=== PATIENT | male | born 1940 | race Caucasian/White ===

== ENCOUNTER 2019-08-12 09:37 | Outpatient (CLI) | payer MEDICARE, SELFPAY ==
[2019-08-12 10:30] VITALS: O2SAT 92
[2019-08-12 10:33] VITALS: O2SAT 86
[2019-08-12 10:35] VITALS: O2SAT 87
[2019-08-12 10:37] VITALS: O2SAT 92
[2019-08-12 10:37] LABS: Base Excess ABG -2.3 mEq/l (+/-2.0); Fractional Inspired Oxygen 21 %; HCO3 ABG 22.3 mEq/l (22.0-26.0); Oxygen Content ABG 11.6 %vol (16.0-22.0); Oxygen Saturation ABG 94.7 % (95.0-100.0); Oxyhemoglobin 90.5 % THb (90.0-100.0); PCO2 ABG 37.4 mmHg (35.0-45.0); PO2 ABG 72.9 mmHg (80.0-100.0); PO2 FiO2 Ratio Arterial Blood 3.47 %; pH ABG 7.394 (7.350-7.450)
[2019-08-12 10:38] LABS: Device ROOM AIR; Modified Allen's Test Pass; Site Drawn LEFT BRACHIAL
[2019-08-12 10:45] VITALS: O2SAT 93
--- NOTE | 2019-08-12 13:59 | HOMEO2EVAL ---
Home Oxygen Evaluation RC: Home Oxygen (O2) Evaluation Start: 08/12/19 13:55 Freq: Status: Active Protocol: RPE Activity Type Activity Date Activity User E-Sign Co-Sign Detail Recorded Client Recorded Date Recorded By Document 08/12/19 10:30 SPRING RT_012 08/12/19 13:58 SPRING Document 08/12/19 10:33 SPRING RT_012 08/12/19 13:58 SPRING Document 08/12/19 10:35 SPRING RT_012 08/12/19 13:58 SPRING Document 08/12/19 10:37 SPRING RT_012 08/12/19 13:58 SPRING Document 08/12/19 10:45 SPRING RT_012 08/12/19 13:58 SPRING 08/12/19 08/12/19 08/12/19 10:30 10:33 10:35 Home O2 Evaluation Test Phase Resting Exercise Exercise Oxygen Delivery Room Air Room Air Nasal Cannula Oxygen Flow Rate (L/min) 1 Pulse Oximetry (90-100 %) 92 86 L 87 L Ambulation Distance (feet) Home Oxygen Evaluation Comments Treatment Charges O2 Evaluation 08/12/19 08/12/19 10:37 10:45 Home O2 Evaluation Test Phase Exercise Resting Oxygen Delivery Nasal Cannula Room Air Oxygen Flow Rate (L/min) 2 Pulse Oximetry (90-100 %) 92 93 Ambulation Distance (feet) 700 Home Oxygen Evaluation Comments PT REQUIRES 2 WITH ACTIVITY Treatment Charges
--- NOTE | 2019-08-12 13:59 | PCRCNOTE ---
PT FAILED SIX MINUTE WALK. HOME O2 EVAL FAXED TO OFFICE. PT REQUESTING INOGEN. NEED 2 WITH ACTIVITY ONLY.
--- NOTE | 2019-08-18 15:48 | P.PCNPFT_ITS ---
PFT Interpretation PFT Interpretation: DOS: 08/12/2019 REQUESTING: Pamela Jin MD REASON FOR TESTING: Shortness of breath PULMONARY FUNCTION TESTS Spirometry: Mild decrease in FEV1 73%, 2.04 L. FVC is normal 102%. FEV1% is low 46% consistent with airflow obstruction. Severe decrease in FEF 25-75%, 19% predicted. No improvement after bronchodilator. Lung volumes: Mild increase in total lung capacity 131% consistent with hyperinflation. Moderate increase in residual volume 156% consistent with air trapping. Airway resistance increased 305%. Diffusion: DLCO is moderately decreased 50% predicted. Flow volume loop: Scooping of the expiratory limb. Inspiratory limb is truncated. IMPRESSION: Mild obstructive ventilatory impairment with airflow obstruction, severe the small airways with mild hyperinflation, moderate air trapping, increased airway resistance and moderate diffusion impairment. No change with b ronchodilator. This pattern can be seen in emphysema. This may be consistent with a COPD/asthma overlap. Clinical correlation is advised. Lack of response to bronchodilators should not preclude use if clinically indicated. Kirsten iJn MD
== END 2019-08-12 09:38 | disposition home or self-care (01) ==
PROVIDERS: PCP Emergency Medicine; Visit Provider Internal Medicine Critical Care Medicine
DX: R06.02 Shortness of breath (principal); J44.9 Chronic obstructive pulmonary disease, unspecified; R94.2 Abnormal results of pulmonary function studies
CPT/HCPCS: 36600; 82805; 94060; 94618; 94726; 94729

== ENCOUNTER 2019-08-25 10:51 | Outpatient (CLI) | payer MEDICARE, SELFPAY ==
[2019-08-25 12:08] LABS: Blood Urea Nitrogen 16 mg/dL (9-20); Calcium 8.6 mg/dL (8.4-10.2); Carbon Dioxide 26 mmol/L (22-30); Chloride 103 mmol/L (98-107); Estimated Glomerular Filt Rate > 60; Glucose 146 mg/dL (75-110); Potassium 4.2 mmol/L (3.4-5.0); Sodium 143 mmol/L (137-145)
== END 2019-08-25 10:52 | disposition home or self-care (01) ==
LOC: ANHSURGERY 10:53
PROVIDERS: Anesthesiology; PCP Emergency Medicine; Visit Provider Otolaryngology
DX: E11.9 Type 2 diabetes mellitus without complications (principal)
CPT/HCPCS: 36415; 80048

== ENCOUNTER 2020-01-05 06:33 | Outpatient (CLI) | payer MEDICARE, SELFPAY ==
--- NOTE | ~2020-01-05 | CT_ITS ---
EXAMINATION: CT lung screening EXAM DATE: 01/05/2020 06:52 INDICATION: Personal history of nicotine dependence. Shortness of breath and cough. TECHNIQUE: Spiral low dose CT of the chest without contrast. Axial, coronal and sagittal images were reviewed. The dose-length product (DLP) for this examination was 227.27 mGy-cm. The exposure was t ailored according to patient size (auto mA exposure control), and iterative reconstruction (ASIR) was used as additional dose reduction technique. There is no prior study for comparison. FINDINGS: Small region of scarring. There are numerous punctate tree-in-bud distribution opacities w ith upper lobe predominance, less than 1 mm in size, probably sequela from prior episode bronchioliti s. No active disease suspected. There is mild emphysema. Tracheobronchial tree is patent. There is no mediastinal, hilar or axillary lymphadenopathy. There are no pleural or pericardial effusions. There is no pneumothorax. Heart normal in size. There is mild to moderate coronary arterial franco cification, arterial sclerosis. The interventricular septum is perceptible, suggesting patient is ane ham. Upper abdomen is unremarkable. There is mild thoracic spondylosis without osteoblastic or os teolytic lesions identified. IMPRESSION: Lung-RADS category 2, benign appearance or behavior (<1% chance of malignancy); recommend continued LDCT screening in 1 year. Reviewed, dictated and finalized at location B.
== END 2020-01-05 06:34 | disposition home or self-care (01) ==
LOC: ANHIMG 06:35
PROVIDERS: PCP Emergency Medicine; Visit Provider Nurse Practitioner Family
DX: Z12.2 Encounter for screening for malignant neoplasm of respiratory organs (principal); Z87.891 Personal history of nicotine dependence
CPT/HCPCS: G0297

== ENCOUNTER 2020-01-21 11:50 | Outpatient (CLI) | payer MEDICARE, SELFPAY ==
[2020-01-21 12:13] LABS: Basophils Absolute Auto 0.1 K/mm3 (0.0-0.1); Basophils Percent Auto 3.4 % (0.2-1.2); Eosinophils Absolute Auto 0.3 K/mm3 (0-0.3); Immature Granulocyte Absolute 0.02 K/mm3 (0.00-0.031); Immature Granulocyte Percent A 0.5 % (0-0.5); Immature Platelet Fraction Pct 7.2 % (0.9-11.2); Immature Reticulocyte Fraction 22.1 % (3.0-15.9); Lymphocytes Absolute Auto 1.01 K/mm3 (0.9-3.2); Lymphocytes Percent Auto 24.5 % (18.3-44.2); Mean Corpuscular HGB Conc 32.7 g/dl (32-36); Mean Corpuscular Hemoglobin 38.6 pg (26-34); Mean Corpuscular Volume 118.1 fl (80-100); Mean Platelet Volume 11.3 fl (7.4-10.4); Monocytes Absolute Auto 0.2 K/mm3 (0.1-0.6); Monocytes Percent Auto 5.3 % (2.6-8.5); Neutrophils Absolute Auto 2.4 K/mm3 (1.3-6.7); Neutrophils Percent Auto 59.3 % (45.5-73.1); Nucleated Red Blood Cells Perc 0.5 % (0.0-0.2); Platelet Count Result 213 k/mm3 (150-375); Red Blood Count 1.66 M/mm3 (4.6-6.20); Red Cell Distribution Width 17.2 % (11.5-14.5); Reticulocyte Hemoglobin Conten 37.1 pg (28.2-35.7); Reticulocyte Percent 2.87 % (0.7-4.3); Reticulocytes Absolute 0.05 B/L (32.2-175.7); White Blood Count 4.1 K/mm3 (4.5-10.0)
[2020-01-21 12:14] LABS: Hematocrit 19.6 % (42.0-52.0); Hemoglobin 6.4 g/dL (14.0-18.0)
[2020-01-21 12:17] LABS: Hypochromasia 2+ (NORMAL); Platelet Estimate Adequate (Adequate)
[2020-01-21 12:18] LABS: Ovalocytes 1+ (NORMAL)
[2020-01-21 12:19] LABS: Poikilocytosis 1+ (NORMAL)
[2020-01-21 15:11] LABS: Iron 214 ug/dL (49-181)
[2020-01-21 15:12] LABS: Alanine Aminotransferase 28 U/L (4-50); Albumin Level 4.3 g/dL (3.5-5.1); Alkaline Phosphatase 59 U/L (38-126); Aspartate Amino Transferase 29 U/L (17-59); Bilirubin,Total 1.5 mg/dL (0.2-1.3); Blood Urea Nitrogen 11 mg/dL (9-20); Calcium 8.5 mg/dL (8.4-10.2); Carbon Dioxide 27 mmol/L (22-30); Chloride 106 mmol/L (98-107); Estimated Glomerular Filt Rate > 60; Glucose 133 mg/dL (75-110); Lactate Dehydrogenase 483 U/L (313-618); Potassium 4.1 mmol/L (3.4-5.0); Sodium 141 mmol/L (137-145)
[2020-01-21 15:20] LABS: Percent Iron Saturation 89 % (20-50)
[2020-01-21 20:06] LABS: Folic Acid 10.7 ng/mL (2.76->20)
[2020-01-25 02:00] LABS: Methylmalonic Acid 128 nmol/L (87-318)
[2020-01-25 06:01] LABS: Albumin 4.1 g/dL (3.8-4.8); Alpha 1 Globulin 0.3 g/dL (0.2-0.3); Alpha 2 Globulin 0.5 g/dL (0.5-0.9); Beta 1 Globulin 0.4 g/dL (0.4-0.6); Gamma Globulin 0.5 g/dL (0.8-1.7); Interpretation Consistent with; Protein, Total 6.2 g/dL (6.1-8.1)
[2020-01-28 02:37] LABS: Soluble Transferrin Receptor 4.05 mg/L (0.76-1.76)
== END 2020-01-21 11:51 | disposition home or self-care (01) ==
PROVIDERS: PCP Emergency Medicine; Visit Provider Internal Medicine Hematology & Oncology
DX: D64.9 Anemia, unspecified (principal)
CPT/HCPCS: 36415; 80053; 82607; 82728; 82746; 83540; 83550; 83615; 83921; 84155; 84165; 84238; 85025; 85046; 85055; 86334

== ENCOUNTER 2020-02-05 07:59 | Day surgery (SDC) | payer MEDICARE, SELFPAY ==
[2020-02-04 12:07] VITALS: BMI 30.4
--- NOTE | ~2020-02-05 | BM_ITS ---
EXAMINATION: CCL bone marrow asp w bx diag DATE: 02/05/2020 10:12 INDICATION: Chronic anemia. TECHNIQUE: A time-out was performed to verify the patient's name, date of , and procedure to b e performed. The procedure including the risks, benefits, and alternatives was discussed with the pat ient. Risks discussed included bleeding and infection. The patient understood the risks and agreed to proceed. The skin overlying the right ilium was prepped and draped in usual sterile fashion. Anest hetic was administered with 1% lidocaine subcutaneously. Moderate sedation was achieved with 1 mg Mary sed IV and 50 mcg fentanyl IV. An 11 gauge needle was inserted into the ilium with fluoroscopic guid ance. Bone marrow was aspirated. An 8 gauge needle was then inserted into the ilium with fluoroscopic guidance. A core bone marrow biopsy was obtained. There were no immediate complications. Fluoroscopy exposure time was 0.0 minutes. The total number of images was 12. FINDINGS: Real-time fluoroscopy demonstrates a marker overlying the right posterior superior iliac sp ine. IMPRESSION: 1. Fluoro-guided bone marrow aspiration. 2. Fluoro-guided bone marrow core biopsy. Reviewed, dictated and finalized at location A.
[2020-02-05 08:32] VITALS: BP 164/69; PULSE 94; RESP 22; TEMP 37.1; O2SAT 94
[2020-02-05 08:37] VITALS: BMI 29.5
[2020-02-05 08:44] LABS: Hemoglobin 9.1 g/dL (14.0-18.0); Mean Corpuscular HGB Conc 32.5 g/dl (32-36); Mean Corpuscular Hemoglobin 35.3 pg (26-34); Mean Corpuscular Volume 108.5 fl (80-100); Mean Platelet Volume 12.1 fl (7.4-10.4); Platelet Count Result 198 k/mm3 (150-375); Red Blood Count 2.58 M/mm3 (4.6-6.20); Red Cell Distribution Width 19.2 % (11.5-14.5); White Blood Count 11.4 K/mm3 (4.5-10.0)
--- NOTE | 2020-02-05 10:03 | P.SEDATION_ITS ---
Moderate Sedation Note-Pt Data Patient Data Diagnosis: Chronic anemia. Present Complaint: Chronic anemia. Procedure to be performed/Plan: Fluoro-guided bone marrow biopsy. Allergies Allergy/AdvReac Type Severity Reaction Status Date / Time Penicillins Allergy Unknown Redness of Verified 12/31/19 14:04 Skin Home Medications Medication Instructions Recorded Confirmed Type aspirin 325 mg tablet 325 mg PO HS 06/24/19 02/05/20 History finasteride 5 mg PO HS 08/21/19 02/05/20 History meloxicam 15 mg tablet 15 mg PO DAILY #90 tablet 09/01/19 02/05/20 Rx losartan 100 mg tablet 100 mg PO DAILY #90 tablet 09/10/19 02/05/20 Rx metformin 500 mg tablet 500 mg PO BID #180 tablet 09/10/19 02/05/20 Rx budesonide-formoterol HFA 160 2 puff INHALATION Q12H 90 Days 12/31/19 02/05/20 Rx mcg-4.5 mcg/actuation aerosol #30.6 gm inhaler pantoprazole 40 mg PO DAILY 02/04/20 02/05/20 History tamsulosin 0.4 mg PO DAILY 02/04/20 02/05/20 History Sedation/Anesthesia: No previous sedation/anesthesia problems (including family history). [facility] Family History Family History Mother Patient's mother is , Onset Age: 85 Father Patient's father is Social History Social History Smoking packs per day: 1 Smoking cigarettes per day: 20.0 Years smoked: 60 Smoking pack-years: 60.00 Smoking status: Former smoker Tobacco type: cigarettes Second hand tobacco smoke exposure: No Smoking end date: 07/09/18 Alcohol intake: former Substance use: never Living arrangements: with family Gender identity (if verbalized by the patient): Male Spiritual care concerns: No Mod Sed Physical Exam Physical Exam Pre Procedural Exam: Normal: Lungs, Heart Rate, Heart Rhythm and Abdomen and Variation: Appearance (Obese.) and Airway (Mallampati class II.) Hours since solid foods: 12 Hours since liquid intake: 12 Internal Medicine - PN: Obj Da Vital Signs Vital Signs: Vital Signs - 24 hr 02/05/20 08:32 Temperature 37.1 C Pulse Rate 94 Respiratory Rate 22 H Blood Pressure 164/69 H Pulse Oximetry 94 Labs CBC & Chem 7: 02/05/20 08:28 Labs: Laboratory Results - last 24 hr 02/05/20 08:28 WBC 11.4 H RBC 2.58 L Hgb 9.1 L Hct 28.0 L MCV 108.5 H MCH 35.3 H MCHC 32.5 RDW 19.2 H Plt Count 198 MPV 12.1 H ASA Classification/Sedation ASA Classification/Sedation ASA Class: II Risks: Risks, benefits and alternatives explained and patient/family accepted plan for sedation. Patient re-evaluated immediately prior to sedation.
[2020-02-05 10:22] VITALS: BP 175/72; PULSE 98; RESP 25; O2SAT 93
[2020-02-05 10:30] VITALS: BP 177/78; PULSE 102; RESP 27; O2SAT 90
[2020-02-05 10:45] VITALS: BP 165/73; PULSE 100; RESP 16; O2SAT 93
[2020-02-05 11:00] VITALS: BP 149/73; PULSE 101; RESP 13; O2SAT 93
[2020-02-05 11:15] VITALS: BP 166/80; PULSE 100; RESP 16; O2SAT 94
--- NOTE | 2020-02-05 11:36 | SUR.PHASEII ---
Pt. provided with discharge education following bone marrow biopsy. Pt. instructed to resume aspirin therapy tomorrow per MD Rand. Pt. verbalizes understanding.
== END 2020-02-05 11:37 | disposition home or self-care (01) ==
PROVIDERS: PCP Emergency Medicine; Visit Provider Radiology Diagnostic Radiology
DX: D64.9 Anemia, unspecified (principal)
CPT/HCPCS: 36415; 38222; 85027; 88184; 88185; 88305; 88311; 88313; 88342; 88360; 88364; 88365; J2250; J3010; J7040

== ENCOUNTER 2020-03-09 08:47 | Outpatient (RCR) | payer MEDICARE, MEDICAID, SELFPAY ==
[2020-01-29 09:46] LABS: Hematocrit 20.7 % (42.0-52.0); Hemoglobin 6.8 g/dL (14.0-18.0)
[2020-01-30] VITALS (9 sets, daily range): BP systolic 150–174; BP diastolic 56–78; PULSE 74–90; RESP 14–24; TEMP 36.9–37.4; O2SAT 96–98
[2020-01-30] MEDS: diphenhydrAMINE HCl CAP 25 MG CAPSULE PO (10:00)
[2020-01-30] MEDS: ACETAMINOPHEN 325 MG TABLET 650 MG PO (10:00)
[2020-01-30] MEDS: FUROSEMIDE INJ 40 MG/4 ML VIAL 20 MG IV PUSH (11:07)
[2020-03-09 10:16] VITALS: BP 176/69; PULSE 76; RESP 14; TEMP 37.4; O2SAT 97
[2020-03-09 10:31] VITALS: BP 182/89; PULSE 78; RESP 14; TEMP 37.2; O2SAT 97
[2020-03-09 11:32] VITALS: BP 159/85; PULSE 76; RESP 14; TEMP 37.1; O2SAT 100
[2020-03-09 12:30] VITALS: BP 171/85; PULSE 80; RESP 14; TEMP 37.3; O2SAT 98
== END 2020-04-28 23:59 | disposition home or self-care (01) ==
LOC: ANHCPCTRAN 08:47
PROVIDERS: PCP Emergency Medicine; Referring Provider Nurse Practitioner Adult Health; Visit Provider Internal Medicine Hematology & Oncology
DX: D64.9 Anemia, unspecified (principal)
CPT/HCPCS: 36415; 36430; 85014; 85018; 86850; 86900; 86901; 86920; 86923; 96374; A9270; J1940; J7050; P9016

== ENCOUNTER 2020-05-17 07:43 | Outpatient (CLI) | payer MEDICARE, MEDICAID, SELFPAY | END 2020-05-17 07:44 | disposition home or self-care (01) | LOC: ANHAUDIO 07:44 | PROVIDERS: PCP Emergency Medicine; Visit Provider Emergency Medicine | DX: H90.3 Sensorineural hearing loss, bilateral (principal) | CPT/HCPCS: 92557; 92567 ==

== ENCOUNTER 2020-06-24 13:00 | Outpatient (RCR) | payer MEDICAID, SELFPAY | END 2020-06-24 23:59 | disposition home or self-care (01) | LOC: ANHAUDIO 13:00 | PROVIDERS: PCP Emergency Medicine; Visit Provider Emergency Medicine | DX: Z46.1 Encounter for fitting and adjustment of hearing aid (principal) | CPT/HCPCS: 99199; V5160; V5261 ==

== ENCOUNTER 2020-06-30 10:50 | Outpatient (CLI) | payer MEDICARE, MEDICAID, SELFPAY ==
[2020-06-30 11:38] LABS: Cholesterol 118 mg/dL (0-200); HDL Direct 53 mg/dL; Triglycerides 64 mg/dL (<150)
[2020-06-30 11:49] LABS: LDL Cholesterol Direct 58 mg/dL
== END 2020-06-30 10:51 | disposition home or self-care (01) ==
PROVIDERS: PCP Internal Medicine; Visit Provider Internal Medicine
DX: E11.9 Type 2 diabetes mellitus without complications (principal); Z13.220 Encounter for screening for lipoid disorders
CPT/HCPCS: 36415; 80061; 83036

== ENCOUNTER 2021-01-05 09:47 | Outpatient (CLI) | payer MEDICARE, MEDICAID, SELFPAY ==
[2021-01-05 10:52] LABS: Hemoglobin A1C 7.2 % (<5.7)
[2021-01-05 16:17] LABS: Creatinine Urine 133.1 mg/dL
[2021-01-05 16:20] LABS: MALB Creatinine Ratio 16.1 mg/g (0-30); Microalbumin Urine Random 21.4 mg/L (0-16.7)
== END 2021-01-05 09:48 | disposition home or self-care (01) ==
PROVIDERS: PCP Internal Medicine; Visit Provider Internal Medicine Hematology & Oncology
DX: E11.9 Type 2 diabetes mellitus without complications (principal)
CPT/HCPCS: 36415; 82043; 83036

== ENCOUNTER 2021-02-14 08:53 | Outpatient (CLI) | payer MEDICARE, MEDICAID, SELFPAY ==
--- NOTE | ~2021-02-14 | CT_ITS ---
EXAMINATION:CT lung screening DATE: 02/14/2021 09:32 INDICATION: Personal history of nicotine dependence. Smoker who quit 2 years ago with 60 pack year hi story. TECHNIQUE: Computed tomography (CT) of the chest was performed without intravenous contrast. Automate d exposure control and iterative reconstruction technique were employed. The dose-length product (DLP ) was 281.90 mGy-cm. COMPARISON: Chest CT 01/05/2020 FINDINGS: There is mild emphysema. There is a stable 3 mm nodule in left upper lobe. There is a stabl e 2 mm nodule at left major fissure. There are two stable 3 mm nodules in right middle lobe. No pleur al effusion. The heart size is normal. There are coronary artery calcifications. No pericardial effus ion. There are changes of cholecystectomy. There are cysts in right kidney measuring up to 4.2 cm. Th ere is mild bilateral gynecomastia. There is moderate thoracic spondylosis and severe lumbar spondylo sis. IMPRESSION: 1. Lung-RADS category 2: Benign appearance or behavior. Continue annual screening with noncontrast lo w-dose chest CT in 12 months. Reviewed, dictated and finalized at location A. IMPRESSION: 1. Lung-RADS category 2: Benign appearance or behavior. Continue annual screeni ng with noncontrast low-dose chest CT in 12 months.
== END 2021-02-14 08:54 | disposition home or self-care (01) ==
LOC: ANHIMG 08:55
PROVIDERS: PCP Internal Medicine; Visit Provider Nurse Practitioner Family
DX: Z12.2 Encounter for screening for malignant neoplasm of respiratory organs (principal); Z87.891 Personal history of nicotine dependence
CPT/HCPCS: 71271

== ENCOUNTER 2021-05-12 07:30 | Outpatient (RCR) | payer MEDICARE, MEDICAID, SELFPAY ==
[2021-05-12] VITALS (10 sets, daily range): BP systolic 128–185; BP diastolic 64–90; PULSE 67–78; RESP 16–18; TEMP 36–36.5; O2SAT 94–98
[2021-05-12] MEDS: ACETAMINOPHEN 325 MG TABLET 650 MG PO (08:03)
[2021-05-12] MEDS: diphenhydrAMINE HCl CAP 25 MG CAPSULE PO (08:04)
[2021-05-12] MEDS: SODIUM CHLORIDE 0.9% IV 250 ML 30 ML IV CONT (08:35)
[2021-05-12] MEDS: FUROSEMIDE INJ 40 MG/4 ML VIAL 20 MG IV PUSH (11:05)
== END 2021-08-10 23:59 | disposition home or self-care (01) ==
LOC: ANHCPCTRAN 07:30
PROVIDERS: PCP Internal Medicine; Visit Provider Internal Medicine Hematology & Oncology
DX: D64.9 Anemia, unspecified (principal); E83.42 Hypomagnesemia
CPT/HCPCS: 36415; 36430; 86850; 86900; 86901; 86920; 96374; A9270; J1940; J7050; P9016

== ENCOUNTER 2021-07-07 14:51 | Inpatient (IN) | payer MEDICARE, MEDICAID, SELFPAY ==
[2021-07-07] VITALS (10 sets, daily range): BP systolic 99–125; BP diastolic 47–55; PULSE 95–113; RESP 22–32; TEMP 36.5–37.6; O2SAT 92–100; BMI 24.6
--- NOTE | ~2021-07-07 | XR_ITS ---
EXAMINATION: XR thoracic spine 3V DATE: 07/12/2021 10:24 INDICATION: Back pain. TECHNIQUE: 3 views of thoracic spine were obtained. COMPARISON: Chest CT 07/07/2021 FINDINGS: There is 8 degrees dextrocurvature of thoracic spine. Vertebral body heights are normal. Th ere is moderately decreased disc height at T6-T7 and T7-T8. There is mildly decreased disc height at multiple levels in mid thoracic spine. There are endplate osteophytes at most levels. There is multil evel severe facet joint osteoarthritis. IMPRESSION: 1. Moderate thoracic spondylosis. Reviewed, dictated and finalized at location A. EXAMINING TECHNICIAN
--- NOTE | ~2021-07-07 | CT_ITS ---
EXAMINATION: CTA chest PE protocol DATE: 07/07/2021 17:46 INDICATION: Shortness of breath, COVID 19 positive TECHNIQUE: Computed tomography angiography (CTA) of the chest was performed with 100 mL Omnipaque-350 intravenous contrast timed to evaluate the pulmonary arteries. Coronal maximum intensity projection 3D-reconstructions were created by the technologist. The dose-length product (DLP) was 730.02 mGy-cm. Automated exposure control and iterative reconstruction technique were employed. COMPARISON: None. FINDINGS: The pulmonary arteries are well-opacified. There are acute emboli in all lobes of the lungs . There is a small right pleural effusion. There are patchy groundglass opacities throughout the lung s. There is no pneumothorax. There is mild mediastinal and right hilar lymphadenopathy, likely reacti ve. The heart size is normal. Calcified coronary artery atherosclerosis is noted. The gallbladder is surgically absent. There is a partially imaged 2.8 cm cyst of the right kidney upper pole. There is m oderate thoracic spondylosis. IMPRESSION: 1. Acute pulmonary emboli involving all lobes of the lungs. 2. Patchy groundglass opacities throughout the lungs in a pattern consistent with COVID 19 pneumonia. These findings were discussed with Dr. Shawn MD in the Emergency Department at 1800 hours on 06/10. Reviewed, dictated and finalized at location F. WINDING MACHINE OPERATOR IMPRESSION: 1. Acute pulmonary emboli involving all lobes of the lungs. 2. Patchy groundglass opacities throughout the lungs in a pattern consistent wi th COVID 19 pneumonia. These findings were discussed with Dr. Shawn MD in the Emergency Department at 1800 hours on 07/07/2021.
--- NOTE | ~2021-07-07 | XR_ITS ---
EXAMINATION: XR chest 1V portable DATE: 07/07/2021 15:31 INDICATION: Shortness of breath. COVID-19 pneumonia. TECHNIQUE: A single frontal view of the chest was obtained. COMPARISON: Chest 2 views 09/11/2016, chest CT 02/14/2021 FINDINGS: There are patchy airspace opacities in all lung zones bilaterally. No pleural effusion or p neumothorax. The heart size is normal. IMPRESSION: 1. Diffuse lung disease, consistent with COVID-19 pneumonia. Reviewed, dictated and finalized at location B. MAKING PLANT OPERATOR
--- NOTE | ~2021-07-07 | XR_ITS ---
EXAMINATION: XR chest 1V portable DATE: 07/09/2021 07:10 INDICATION: Respiratory failure. TECHNIQUE: A single frontal view of the chest was obtained on 2 radiographs. COMPARISON: Chest single view 07/07/2021, chest CT 07/07/2021 FINDINGS: There are patchy airspace opacities in all lung zones bilaterally with relative sparing of left lung apex. There is a small right pleural effusion. No pneumothorax. The heart size is normal. IMPRESSION: 1. Stable diffuse lung disease, consistent with COVID-19 pneumonia without or with infarcts. 2. Stable small right pleural effusion. Reviewed, dictated and finalized at location A. R OPERATOR IMPRESSION: 1. Stable diffuse lung disease, consistent with COVID-19 pneumonia without or w ith infarcts. 2. Stable small right pleural effusion.
--- NOTE | ~2021-07-07 | US_ITS ---
EXAMINATION: US renal BI EXAM DATE: 07/10/2021 10:20 INDICATION: Renal failure. TECHNIQUE: Multiple grayscale and Doppler images of the kidneys were obtained (by a technologist who performed the scan) and subsequently reviewed. Comparison is made to prior examination from 09/21/2011 . FINDINGS: Right kidney: There is normal contour and echogenicity. It measures 11.7 x 5.5 x 6.5 centimeters. Th ere is an anechoic cystic region likely cyst measuring about 5 cm. There is no hydronephrosis. Left kidney: There is normal contour and echogenicity. It measures 11.4 x 5.1 x 6.1 centimeters. The re is an anechoic region consistent with cysts measuring 3 cm. There is no hydronephrosis. Bladder unremarkable. IMPRESSION: 1. No hydronephrosis. Reviewed, dictated and finalized at location A. GLUER IMPRESSION: 1. No hydronephrosis.
--- NOTE | ~2021-07-07 | US_ITS ---
EXAMINATION: US venous doppler [facility] EXAM DATE: 07/10/2021 10:16 INDICATION: Pulmonary emboli. TECHNIQUE: Multiple grayscale, color flow and Doppler images of the lower extremity deep venous syste ms bilaterally were obtained and reviewed. There is no prior study for comparison. FINDINGS: Right side: The right common femoral, femoral and profunda veins demonstrate normal color flow, respi ratory variation, augmentation and compressibility. Compressibility, color flow confirmed within the right popliteal, posterior tibial, peroneal, and greater saphenous veins. Left side: The left common femoral, femoral and profunda veins demonstrate normal color flow, respira tory variation, augmentation and compressibility. Compressibility, color flow confirmed within the l eft popliteal, posterior tibial, peroneal, and greater saphenous veins. IMPRESSION: No lower extremity deep venous thrombosis bilaterally. Reviewed, dictated and finalized at location A. EL PILE DRIVER OPERATOR
--- NOTE | 2021-07-07 14:55 | PC.NURSE ---
Patient reports he does not wish to have chest compressions or to be intubated in the case it would be needed.
--- NOTE | 2021-07-07 15:00 | ECG_ITS ---
Measurements Intervals [place] Rate: 105 P: -60 RI: 134 QRS: 87 QRSD: 130 T: -61 QT: 357 QTc: 472 Interpretive Statements SINUS OR ECTOPIC ATRIAL TACHYCARDIA RIGHT BUNDLE BRANCH BLOCK MINIMAL Q WAVES- ANTEROLAT/HIGH LAT LEADS BORDERLINE ST-T WAVE ABNORMALITY- INFERIOR LEADS BASELINE ARTIFACT- II, III, AVR, AVF, V1-V6 ABNORMAL ECG Electronically Signed On 07-07-2021 15:42:23 BANK CASHIER by Tone Walker D.O.
[2021-07-07 15:32] LABS: Basophils Absolute Auto 0.1 K/mm3 (0.0-0.1); Basophils Percent Auto 0.3 % (0.2-1.2); Hematocrit 21.3 % (42.0-52.0); Immature Granulocyte Percent A 1.1 % (0-0.5); Lymphocytes Percent Auto 2.6 % (18.3-44.2); Mean Corpuscular HGB Conc 32.4 g/dl (32-36); Mean Corpuscular Hemoglobin 34.7 pg (26-34); Mean Platelet Volume 12.6 fl (7.4-10.4); Monocytes Absolute Auto 0.7 K/mm3 (0.1-0.6); Monocytes Percent Auto 2.6 % (2.6-8.5); Neutrophils Absolute Auto 24.8 K/mm3 (1.3-6.7); Neutrophils Percent Auto 93.4 % (45.5-73.1); Nucleated Red Blood Cells Absolute Auto 0.3 K/mm3 (0.0-0.012); Platelet Count Result 251 k/mm3 (150-375); Red Blood Count 1.99 M/mm3 (4.6-6.20); Red Cell Distribution Width 23.9 % (11.5-14.5); White Blood Count 26.6 K/mm3 (4.5-10.0)
[2021-07-07 15:56] LABS: Alanine Aminotransferase 21 U/L (4-50); Albumin Level 3.4 g/dL (3.5-5.1); Alkaline Phosphatase 104 U/L (38-126); Anion Gap 12 mmol/L (8-16); Aspartate Amino Transferase 28 U/L (17-59); Bilirubin,Total 2.1 mg/dL (0.2-1.3); Blood Urea Nitrogen 32 mg/dL (9-20); Calcium 8.5 mg/dL (8.4-10.2); Carbon Dioxide 19 mmol/L (22-30); Chloride 104 mmol/L (98-107); Estimated Glomerular Filt Rate 37; Glucose 280 mg/dL (65-110); Potassium 5.1 mmol/L (3.4-5.0); Sodium 135 mmol/L (137-145)
[2021-07-07 16:49] LABS: Hemoglobin 6.9 g/dL (14.0-18.0)
[2021-07-07 16:53] LABS: Smudge Cells FEW
[2021-07-07 16:55] LABS: Platelet Estimate Adequate (Adequate)
[2021-07-07 16:56] LABS: Anisocytosis 1+ (NORMAL)
[2021-07-07 16:57] LABS: Poikilocytosis 1+ (NORMAL)
[2021-07-07 16:59] LABS: Hypochromasia 2+ (NORMAL)
[2021-07-07 17:04] LABS: Alveolar/Arterial O2 Gradient 609.9 mmHg; Base Excess ABG -3.6 mEq/l (+/-2.0); Fractional Inspired Oxygen 100 %; HCO3 ABG 19.8 mEq/l (22.0-26.0); Oxygen Content ABG 9.4 %vol (16.0-22.0); Oxygen Saturation ABG 95.8 % (95.0-100.0); Oxyhemoglobin 91.9 % THb (90.0-100.0); PCO2 ABG 28.9 mmHg (35.0-45.0); PO2 ABG 74.2 mmHg (80.0-100.0); PO2 FiO2 Ratio Arterial Blood 0.74 %; pH ABG 7.454 (7.350-7.450)
[2021-07-07 17:06] LABS: Device NON-REBREATHER MASK; Modified Allen's Test Pass; Site Drawn RIGHT RADIAL; Total Hemoglobin 7.2 g/dL (12.0-18.0)
[2021-07-07 17:40] LABS: INR 1.6; Prothrombin Time 18.3 Seconds (11.1-14.7)
[2021-07-07 17:42] LABS: D Dimer 1.76 ug/mL (<0.48)
--- NOTE | 2021-07-07 18:25 | ED.SOB ---
HPI - SOB/Dyspnea General Chief Complaint: Shortness of Breath/Dyspnea Stated Complaint: sob, Time Seen by Provider: 07/07/21 17:06 Source: patient Mode of arrival: EMS Limitations: no limitations History of Present Illness HPI Narrative: 81-year-old with a history of COPD, myelodysplastic syndrome here with complaints of severe shortness of breath for past 1 day. Patient states that he was diagnosed with Covid approximately a week ago. He denies any nausea, vomiting or abdominal pain. He denies any chest pain. MD elicited complaint: shortness of breath and cough Pertinent past history: COPD Context: recent illness (Diagnosed with Covid 1 week ago) Exacerbating factors: nothing Relieving factors: oxygen Known history of: COPD Associated symptoms: denies other symptoms Treatment prior to arrival: oxygen Related Data Home Medications Medication Instructions Recorded Confirmed aspirin 325 mg tablet 325 mg PO HS 06/24/19 06/22/21 magnesium oxide 500 mg PO DAILY 03/26/20 06/22/21 Trelegy Ellipta 1 puff DAILY 11/24/20 06/22/21 tramadol 50 mg BYMOUTH DAILY 03/09/21 06/22/21 tramadol 50 mg PO Q6H PRN 03/30/21 06/22/21 Allergies Allergy/AdvReac Type Severity Reaction Status Date / Time Penicillins Allergy Severe Redness of Verified 06/22/21 12:42 Skin Review of Systems Review of Systems: All systems reviewed & are unremarkable except as noted in HPI and below Constitutional: Constitutional: Reports no additional constitutional complaints Eyes: Eyes: Reports no additional eye complaints ENT: Reports system reviewed and no additional complaints, except as documented Cardiovascular: Cardiovascular: Reports no additional cardiovascular complaints Respiratory: Respiratory: Reports as per HPI Gastrointestinal: Gastrointestinal: Reports no additional gastrointestinal complaints Musculoskeletal: Musculoskeletal: Reports no additional musculoskeletal complaints Neurologic: Reports system reviewed and no additional complaints, except as documented Endocrine: Endocrine: Reports no additional endocrine complaints [facility] Family History Family History Mother Patient's mother is , Onset Age: 85 Father Patient's father is Social History Social History Smoking packs per day: 1 Smoking cigarettes per day: 20.0 Years smoked: 60 Smoking pack-years: 60.00 Smoking status: Former smoker Tobacco type: cigarettes Second hand tobacco smoke exposure: No Smoking end date: 07/09/18 Alcohol intake: former Substance use: never Gender identity (if verbalized by the patient): Male Spiritual care concerns: No Exam Narrative: GENERAL: Well-appearing, well-nourished, and in mild distress upon arrival HEAD: Normocephalic, atraumatic. EYES: PERRLA and EOMI. NECK: Supple. CHEST: Decreased air entry mild wheeze bilaterally. HEART: Regular rate and rhythm. No murmur heard. Normal peripheral pulses. ABDOMEN: Soft, nontender, nondistended, normal active bowel sounds. EXTREMITIES: Normal range of motion. No edema. SKIN: Warm, dry, no rash. NEURO: No focal deficits. Alert and oriented x3. PSYCH: Normal mood and affect. Course Course Emergency Course: Patient was hypoxic upon arrival, she was unable to tolerate nonrebreather we will put him on 15 L high flow. He is feeling much better. Informed him about his lab work, CT findings. I discussed with Dr. Dubon recommended Remdesivir and Decadron. As the patient has elevated white count I will cover him with antibiotic as well Levaquin and Rocephin as recommended. CT also shows PE will give him Lovenox 80 mg sub Q daily Vital Signs Vital signs: Vital Signs Temperature 37.6 C 07/07/21 14:56 Pulse Rate 113 H 07/07/21 14:56 Respiratory Rate 32 H 07/07/21 14:56 Blood Pressure 120/54 L 07/07/21 14:56 Pulse
[2021-07-07] MEDS: ENOXAPARIN 80 MG/0.8 ML SYRINGE SUB-Q (18:55)
[2021-07-07 19:07] LABS: EDCOVIDSCREEN Negative (Negative)
[2021-07-07 19:08] LABS: Lactic Acid Reflex 1.7 mmol/L (0.7-2.1)
[2021-07-07] MEDS: REMDESIVIR 200 MG/NS 250 ML 200 MG/250 ML BAG 250 MG IVPB (21:38)
[2021-07-07] MEDS: ACETAMINOPHEN 325 MG TABLET 650 MG PO (21:57)
--- NOTE | 2021-07-07 22:23 | PC.NURSE ---
attempted to call report to imu nurse will call back
[2021-07-07 22:46] LABS: Alanine Aminotransferase 18 U/L (4-50); Estimated CRCL calculation 25 ml/min; Estimated Glomerular Filt Rate 26
[2021-07-07 22:47] LABS: INR 1.9
--- NOTE | 2021-07-07 22:56 | ADMGEN ---
This patient, oJse R Perry, was admitted to IMU Room [id number]. Patient/family oriented to hospital policies and general routines including ID bracelet, bed and alarms, visiting hours, pain management, procedures, bathroom and other care routines, personal items, smoking policy, room service/diet, and visiting hours. Information on how to activate the Rapid Response Team has been discussed. Patient/Family are encouraged to report perceived risks to care and to ask questions if they do not understand what they are told or what they should do.
--- NOTE | 2021-07-07 23:34 | PCRCNOTE ---
past scheduled time for administration- see next scheduled administration
[2021-07-08] VITALS (29 sets, daily range): BP systolic 97–145; BP diastolic 39–64; PULSE 89–122; RESP 18–28; TEMP 35.9–36.8; O2SAT 93–100
[2021-07-08] MEDS: SODIUM CHLORIDE 0.9% IV 1,000 ML 75 ML IV CONT ×2 (00:19→04:44)
[2021-07-08 00:35] LABS: Glucose Point of Care 200 mg/dl (65-105)
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
[2021-07-08 02:26] LABS: Basophils Absolute Auto 0.1 K/mm3 (0.0-0.1); Basophils Percent Auto 0.6 % (0.2-1.2); Hematocrit 22.3 % (42.0-52.0); Lymphocytes Absolute Auto 0.67 K/mm3 (0.9-3.2); Lymphocytes Percent Auto 3.3 % (18.3-44.2); Mean Corpuscular HGB Conc 29.1 g/dl (32-36); Mean Corpuscular Hemoglobin 33.5 pg (26-34); Mean Corpuscular Volume 114.9 fl (80-100); Mean Platelet Volume 11.4 fl (7.4-10.4); Monocytes Absolute Auto 0.6 K/mm3 (0.1-0.6); Monocytes Percent Auto 2.7 % (2.6-8.5); Neutrophils Absolute Auto 18.5 K/mm3 (1.3-6.7); Neutrophils Percent Auto 92.4 % (45.5-73.1); Nucleated Red Blood Cells Absolute Auto 0.2 K/mm3 (0.0-0.012); Nucleated Red Blood Cells Perc 0.8 % (0.0-0.2); Platelet Count Result 185 k/mm3 (150-375); Red Blood Count 1.94 M/mm3 (4.6-6.20); Red Cell Distribution Width 24.4 % (11.5-14.5)
[2021-07-08] MEDS: IPRATROPIUM BR 0.02% INH SOLN 0.5 MG/2.5 ML VIAL INHALATION ×4 (02:33→22:16)
[2021-07-08] MEDS: ALBUTEROL SULFATE NEB 2.5 MG/0.5 ML INH 5 MG INHALATION ×4 (02:33→22:16)
[2021-07-08 02:35] LABS: Alanine Aminotransferase 16 U/L (4-50); Aspartate Amino Transferase 19 U/L (17-59); Estimated CRCL calculation 24 ml/min; Estimated Glomerular Filt Rate 25
[2021-07-08 02:50] LABS: Anion Gap 14 mmol/L (8-16); Blood Urea Nitrogen 43 mg/dL (9-20); Calcium 8.1 mg/dL (8.4-10.2); Carbon Dioxide 16 mmol/L (22-30); Chloride 103 mmol/L (98-107); Glucose 223 mg/dL (65-110); Sodium 133 mmol/L (137-145)
[2021-07-08 03:06] LABS: Hemoglobin 6.5 g/dL (14.0-18.0)
[2021-07-08 03:07] LABS: Platelet Estimate Adequate (Adequate)
[2021-07-08 03:08] LABS: Anisocytosis 1+ (NORMAL)
[2021-07-08 03:09] LABS: Poikilocytosis 1+ (NORMAL)
[2021-07-08] MEDS: SODIUM CHLORIDE 0.9% IV 1,000 ML 999 ML IV CONT (03:21)
[2021-07-08 06:48] LABS: INR 1.9; Prothrombin Time 21.5 Seconds (11.1-14.7)
[2021-07-08] MEDS: MAGNESIUM OXIDE 400 MG TABLET PO (08:57)
[2021-07-08] MEDS: BARICITINIB 1 MG TABLET PO (08:57)
[2021-07-08] MEDS: TAMSULOSIN HCL 0.4 MG CAPSULE PO (08:58)
[2021-07-08] MEDS: PANTOPRAZOLE 40 MG TABLET PO (08:58)
[2021-07-08 09:07] LABS: Glucose Point of Care 215 mg/dl (65-105)
[2021-07-08] MEDS: INSULIN ASPART (*BKC) 100 UNITS/ML SUB-Q ×3 (09:18→17:35)
[2021-07-08] MEDS: TUBING, BLOOD PLUM PUMP TUBING 1 EACH XX ×2 (09:18)
[2021-07-08 12:30] LABS: Glucose Point of Care 310 mg/dl (65-105)
[2021-07-08 14:05] LABS: SARS-CoV-2 RNA PCR Positive
--- NOTE | 2021-07-08 15:12 | PM.IMPN ---
Progress Note: A&P Assessment and Plan (1) Acute respiratory failure with hypoxia: Code(s): J96.01 - Acute respiratory failure with hypoxia Status: Acute (2) Pneumonia due to 2019 novel coronavirus: Code(s): U07.1 - COVID-19; J12.82 - Pneumonia due to coronavirus disease 2019 Status: Acute (3) Pulmonary embolism: Qualifiers: Acute cor pulmonale presence: without acute cor pulmonale Chronicity: acute Pulmonary embolism type: unspecified Qualified Code(s): I26.99 - Other pulmonary embolism without acute cor pulmonale Code(s): I26.99 - Other pulmonary embolism without acute cor pulmonale Status: Acute (4) Acute renal failure: Qualifiers: Acute renal failure type: unspecified Qualified Code(s): N17.9 - Acute kidney failure, unspecified Code(s): N17.9 - Acute kidney failure, unspecified Status: Acute (5) Type 2 diabetes mellitus with hyperglycemia: Qualifiers: Diabetes mellitus half-way insulin use: without half-way use Qualified Code(s): E11.65 - Type 2 diabetes mellitus with hyperglycemia Code(s): E11.65 - Type 2 diabetes mellitus with hyperglycemia Status: Acute Additional Plan The patient tested positive for COVID as outpatient. The patient has acute hypoxic respiratory failure due to combination of COVID pneumonia and bilateral pulmonary embolism. Patient was started on Decadron, Remdesivir and Baricitinib. Confirmatory COVID test positive here as well. Remdesivir held due to the CHI. Was up to 15L but back down to 10L now. He has been started on therapeutic Lovenox 80 mg q.day adjusted due to his renal function for the PEs. Order LE doppler Unfortunately patient also has significant anemia likely due to his myelodysplastic syndrome with Hgb 6.5 - he received 2U PRBC. No Lasix after the transfusion since he has the CHI. He had some mildly low blood pressures so could be a component of hypovolemia hypotension. He did receive 1 L normal saline bolus. He was on IV fluids 125 mL but this was stopped since he has COVID. The patient does have diabetes mellitus with hyperglycemia. Will hold the patient's metformin due to his renal insufficiency. Continue high-dose sliding scale with Accu-Cheks a.c. HS. Subjective Date/time seen: 07/08/21 15:12 Interval history: 81yo male with hx of COPD/interstitial lung disease, myelodysplastic syndrome, CAD, DM and BPH who presented to the ER via EMS from home due to shortness of breath. Assuming care. Chart reviewed. Patient denies any cough or chest pain. He does feel short of breath. Complains of right-sided mid back pain that is pleuritic and positional. No nausea, vomiting or diarrhea. He has voided x3 today Exam Narrative: AF 97.8 125/56 941 8 93% HFNC 10L Gen - tachypneic with talking. Chest - R>L inspiraotry crackles CV - RRR S1/S2. Tele showing no significant dysrhythmias Abd - Soft, NT/ND, Positive BS Ext - No pedal edema Psych - Nml mood and affect Skin - cool and dry Objective Data Vital Signs Vital Signs: Vital Signs - 24 hr 07/07/21 16:49 07/07/21 17:24 07/07/21 19:03 Temperature Pulse Rate 110 H 95 Respiratory Rate 28 H 30 H Blood Pressure 104/54 L 125/55 L Pulse Oximetry 100 96 97 07/07/21 19:16 07/07/21 19:17 07/07/21 21:36 Temperature Pulse Rate 103 H 96 Respiratory Rate 24 H 22 H Blood Pressure 125/55 L 110/50 L Pulse Oximetry 92 96 99 07/07/21 23:00 07/07/21 23:26 07/08/21 00:00 Temperature 97.7 F Pulse Rate 95 95 89 Respiratory Rate 22 H 22 H 22 H Blood Pressure 99/47 L Pulse Oximetry 95 95 95 07/08/21 02:00 07/08/21 02:41 07/08/21 02:54 Temperature Pulse Rate 90 91 93 Respiratory Rate 20 18 Blood Pressure Pulse Oximetry 07/08/21 04:00 07/08/21 06:25 07/08/21 06:40 Temperature 97.3 F L 96.6 F L 96.6 F L Pulse Rate 97 96 95 Respiratory Rate 20 22 H 24 H Blood Pressure 97/39 L 106/
[2021-07-08 17:26] LABS: Glucose Point of Care 365 mg/dl (65-105)
[2021-07-08] MEDS: ENOXAPARIN 80 MG/0.8 ML SYRINGE SUB-Q (17:34)
[2021-07-08 20:33] LABS: Glucose Point of Care 359 mg/dl (65-105)
[2021-07-08] MEDS: FINASTERIDE 5 MG TABLET PO (21:00)
[2021-07-08] MEDS: ASPIRIN 81 MG CHEWABLE TABLET PO (21:17)
[2021-07-09] VITALS (17 sets, daily range): BP systolic 107–150; BP diastolic 56–81; PULSE 84–109; RESP 17–24; TEMP 36.2–36.5; O2SAT 94–100
[2021-07-09 07:05] LABS: Basophils Percent Auto 0.2 % (0.2-1.2); Hemoglobin 7.9 g/dL (14.0-18.0); Immature Granulocyte Absolute 0.09 K/mm3 (0.00-0.031); Immature Granulocyte Percent A 0.8 % (0-0.5); Lymphocytes Absolute Auto 0.33 K/mm3 (0.9-3.2); Lymphocytes Percent Auto 3.1 % (18.3-44.2); Mean Corpuscular HGB Conc 32.9 g/dl (32-36); Mean Corpuscular Hemoglobin 32.9 pg (26-34); Mean Platelet Volume 11.9 fl (7.4-10.4); Monocytes Absolute Auto 0.3 K/mm3 (0.1-0.6); Monocytes Percent Auto 2.9 % (2.6-8.5); Neutrophils Absolute Auto 9.9 K/mm3 (1.3-6.7); Nucleated Red Blood Cells Absolute Auto 0.1 K/mm3 (0.0-0.012); Nucleated Red Blood Cells Perc 0.6 % (0.0-0.2); Platelet Count Result 190 k/mm3 (150-375); Red Cell Distribution Width 22.5 % (11.5-14.5); White Blood Count 10.6 K/mm3 (4.5-10.0)
[2021-07-09 07:15] LABS: INR 1.5; Prothrombin Time 17.8 Seconds (11.1-14.7)
[2021-07-09 07:35] LABS: Alanine Aminotransferase 22 U/L (4-50); Anion Gap 12 mmol/L (8-16); Aspartate Amino Transferase 25 U/L (17-59); Blood Urea Nitrogen 56 mg/dL (9-20); Calcium 7.8 mg/dL (8.4-10.2); Carbon Dioxide 18 mmol/L (22-30); Chloride 102 mmol/L (98-107); Estimated CRCL calculation 21 ml/min; Estimated Glomerular Filt Rate 21; Glucose 307 mg/dL (65-110); Magnesium 1.6 mg/dL (1.6-2.3); Phosphorus 5.3 mg/dL (2.5-4.5); Sodium 132 mmol/L (137-145)
[2021-07-09 07:49] LABS: Macrocytosis 2+ (NORMAL)
[2021-07-09 07:50] LABS: Platelet Estimate Adequate (Adequate)
[2021-07-09] MEDS: BARICITINIB 1 MG TABLET PO (08:32)
[2021-07-09] MEDS: TAMSULOSIN HCL 0.4 MG CAPSULE PO (08:32)
[2021-07-09] MEDS: INSULIN ASPART (*BKC) 100 UNITS/ML SUB-Q ×3 (08:32→17:27)
[2021-07-09] MEDS: MAGNESIUM OXIDE 400 MG TABLET PO (08:32)
[2021-07-09] MEDS: PANTOPRAZOLE 40 MG TABLET PO (08:32)
[2021-07-09 08:53] LABS: Glucose Point of Care 256 mg/dl (65-105)
[2021-07-09] MEDS: ALBUTEROL SULFATE NEB 2.5 MG/0.5 ML INH 5 MG INHALATION ×3 (10:00→19:37)
[2021-07-09] MEDS: IPRATROPIUM BR 0.02% INH SOLN 0.5 MG/2.5 ML VIAL INHALATION ×3 (10:00→19:37)
--- NOTE | 2021-07-09 11:38 | PM.IMPN ---
Progress Note: A&P Assessment and Plan (1) Acute respiratory failure with hypoxia: Code(s): J96.01 - Acute respiratory failure with hypoxia Status: Acute (2) Pneumonia due to 2019 novel coronavirus: Code(s): U07.1 - COVID-19; J12.82 - Pneumonia due to coronavirus disease 2019 Status: Acute (3) Pulmonary embolism: Qualifiers: Acute cor pulmonale presence: without acute cor pulmonale Chronicity: acute Pulmonary embolism type: unspecified Qualified Code(s): I26.99 - Other pulmonary embolism without acute cor pulmonale Code(s): I26.99 - Other pulmonary embolism without acute cor pulmonale Status: Acute (4) Acute renal failure: Qualifiers: Acute renal failure type: unspecified Qualified Code(s): N17.9 - Acute kidney failure, unspecified Code(s): N17.9 - Acute kidney failure, unspecified Status: Acute (5) Type 2 diabetes mellitus with hyperglycemia: Qualifiers: Diabetes mellitus penitentiary insulin use: without penitentiary use Qualified Code(s): E11.65 - Type 2 diabetes mellitus with hyperglycemia Code(s): E11.65 - Type 2 diabetes mellitus with hyperglycemia Status: Acute Additional Plan # COVID 19 pneumonia on Decadron remdesivir and baricitinib. COVID test confirmatory test positive care as well. Remdesivir held due to CHI. On baricitinib. Also on Levaquin for community-acquired pneumonia possible # acute hypoxic respiratory failure on oxygen supplementation. Down to 6 L today # bilateral pulmonary embolism on Lovenox 80 mg subQ daily adjusted due to his renal function for the PEs for extremity Doppler pending. # right-sided pleuritic chest pain/musculoskeletal chest pain # CHI on CKD stage 3 baseline creatinine about 1.2 to 1.3. Continues to worsen 2.9 today. He did get CTA done on 07/07 could be contrast induced nephropathy. Will get renal ultrasound to rule out obstructive causes. Urine studies will be ordered. Consultation Renal. # acute on chronic anemia no signs of bleeding likely due to his underlying myelodysplastic syndrome. Initial transfusion off and on every 3-6 weeks. Follows with oncologist. Status post 2 units PRBC transfused 07/07/2021. # diabetes mellitus type 2 with hyperglycemia. Metformin on hold due to renal insufficiency high-dose sliding scale will add Lantus # DVT propH: lovenox # DNR Subjective Date/time seen: 07/09/21 11:38 Interval history: 81yo male with hx of COPD/interstitial lung disease, myelodysplastic syndrome, CAD, DM and BPH who presented to the ER via EMS from home due to shortness of breath. Assuming care. Chart reviewed. Patient denies any cough or chest pain. He does feel short of breath. Complains of right-sided mid back pain that is pleuritic and positional. No nausea, vomiting or diarrhea. He has voided x3 today 07/09/2021 oxygen requirement has gone down reports pain is right-sided chest no cough feel short of breath upon exertion being okay he states Review of Systems Review of Systems: All systems reviewed & are unremarkable except as noted in HPI and below (HPI) Exam Narrative: Gen -conversational dyspnea noted Chest right chest wall tenderness on palpation coarse breath sound bilaterally CV - RRR S1/S2. Tele showing no significant dysrhythmias Abd - Soft, NT/ND, Positive BS Ext - No pedal edema cyanosis or clubbing Psych - Nml mood and affect Skin - cool and dry Objective Data Vital Signs Vital Signs: Vital Signs - 24 hr 07/08/21 12:00 07/08/21 13:04 07/08/21 13:31 Temperature 96.8 F L 97.0 F L 97.8 F Pulse Rate 96 99 96 Respiratory Rate 24 H 22 H 22 H Blood Pressure 128/60 133/62 125/56 L Pulse Oximetry 95 98 98 07/08/21 14:00 07/08/21 14:48 07/08/21 15:02 Temperature Pulse Rate 103 H 95 94 Respiratory Rate 18 18 Blood Pressure Pulse Oximetry 07/08/21 15:03 07/08/21 16:00 07/08/21 17:58 Temperature 96.9 F L Pulse Rate 109 H
[2021-07-09 12:51] LABS: Glucose Point of Care 326 mg/dl (65-105)
[2021-07-09 16:15] LABS: Urea Random Urine 615 MG/DL
[2021-07-09 16:25] LABS: Sodium Urine Random 37 meq/L
[2021-07-09 16:47] LABS: Eosinophil Urine None Seen % (None Seen)
[2021-07-09 17:16] LABS: Glucose Point of Care 395 mg/dl (65-105)
[2021-07-09] MEDS: ACETAMINOPHEN 325 MG TABLET 650 MG PO (17:26)
[2021-07-09] MEDS: ENOXAPARIN 80 MG/0.8 ML SYRINGE SUB-Q (17:26)
[2021-07-09] MEDS: FINASTERIDE 5 MG TABLET PO (20:02)
[2021-07-09] MEDS: ASPIRIN 81 MG CHEWABLE TABLET PO (20:02)
[2021-07-09 20:56] LABS: Glucose Point of Care 388 mg/dl (65-105)
[2021-07-09] MEDS: LIDOCAINE 5% PATCH 1 PATCH TRANSDERM (21:11)
[2021-07-09] MEDS: INSULIN GLARGINE (*BKC) 100 UNITS/ML 15 UNITS SUB-Q (21:11)
[2021-07-10] VITALS (23 sets, daily range): BP systolic 128–152; BP diastolic 58–79; PULSE 84–112; RESP 18–22; TEMP 35.6–36.7; O2SAT 91–98
[2021-07-10] MEDS: IPRATROPIUM BR 0.02% INH SOLN 0.5 MG/2.5 ML VIAL INHALATION ×3 (01:58→21:04)
[2021-07-10] MEDS: ALBUTEROL SULFATE NEB 2.5 MG/0.5 ML INH 5 MG INHALATION ×3 (01:58→21:04)
[2021-07-10 05:33] LABS: Hemoglobin 7.5 g/dL (14.0-18.0); Immature Granulocyte Absolute 0.07 K/mm3 (0.00-0.031); Immature Granulocyte Percent A 0.6 % (0-0.5); Lymphocytes Absolute Auto 0.38 K/mm3 (0.9-3.2); Lymphocytes Percent Auto 3.4 % (18.3-44.2); Mean Corpuscular HGB Conc 32.6 g/dl (32-36); Mean Corpuscular Hemoglobin 32.5 pg (26-34); Mean Corpuscular Volume 99.6 fl (80-100); Mean Platelet Volume 11.5 fl (7.4-10.4); Monocytes Absolute Auto 0.3 K/mm3 (0.1-0.6); Monocytes Percent Auto 2.7 % (2.6-8.5); Neutrophils Absolute Auto 10.3 K/mm3 (1.3-6.7); Neutrophils Percent Auto 93.3 % (45.5-73.1); Nucleated Red Blood Cells Perc 0.4 % (0.0-0.2); Platelet Count Result 193 k/mm3 (150-375); Red Blood Count 2.31 M/mm3 (4.6-6.20); Red Cell Distribution Width 22.3 % (11.5-14.5)
[2021-07-10 05:42] LABS: INR 1.4; Prothrombin Time 17.1 Seconds (11.1-14.7)
[2021-07-10 05:47] LABS: Alanine Aminotransferase 28 U/L (4-50); Alkaline Phosphatase 88 U/L (38-126); Anion Gap 14 mmol/L (8-16); Aspartate Amino Transferase 33 U/L (17-59); Bilirubin,Total 1.3 mg/dL (0.2-1.3); Blood Urea Nitrogen 61 mg/dL (9-20); Calcium 7.9 mg/dL (8.4-10.2); Carbon Dioxide 16 mmol/L (22-30); Chloride 102 mmol/L (98-107); Estimated CRCL calculation 29 ml/min; Estimated Glomerular Filt Rate 31; Glucose 194 mg/dL (65-110); Magnesium 1.4 mg/dL (1.6-2.3); Potassium 4.8 mmol/L (3.4-5.0); Sodium 132 mmol/L (137-145)
[2021-07-10 05:58] LABS: CRP 17.6 mg/dL (<1.0)
[2021-07-10 08:51] LABS: Glucose Point of Care 185 mg/dl (65-105)
--- NOTE | 2021-07-10 10:16 | PM.CNNEP ---
Assessment and Plan Assessment and plan (1) Acute renal failure: Qualifiers: Acute renal failure type: unspecified Qualified Code(s): N17.9 - Acute kidney failure, unspecified Code(s): N17.9 - Acute kidney failure, unspecified Status: Acute Assessment and Plan: The patient has acute kidney injury. Renal ultrasound is being done now. On the screen there is no apparent hydronephrosis in the right kidney that was imaged while I was there. Urine electrolytes do not look pre renal. His creatinine chris from 1.4 to 2.9 yesterday but today felt to 2.1. I suspect that his CHI is from the contrast from the CT angio. He could have ATN from COVID, however he is not that sick, his blood pressures have not been low, and his creatinine is better on its own. Rhabdomyolysis could cause an elevated creatinine. We can check a CPK Obstruction is possible. Will see what the final report on the rest of the ultrasound is. Allergic interstitial nephritis and marrow nephritis are less likely in this clinical scenario. (2) Pulmonary embolism: Qualifiers: Acute cor pulmonale presence: without acute cor pulmonale Chronicity: acute Pulmonary embolism type: unspecified Qualified Code(s): I26.99 - Other pulmonary embolism without acute cor pulmonale Code(s): I26.99 - Other pulmonary embolism without acute cor pulmonale Status: Acute Assessment and Plan: The patient is is on anticoagulants (3) Acute respiratory failure with hypoxia: Code(s): J96.01 - Acute respiratory failure with hypoxia Status: Acute Assessment and Plan: Patient is on oxygen and is saturating well right now. (4) Pneumonia due to 2019 novel coronavirus: Code(s): U07.1 - COVID-19; J12.82 - Pneumonia due to coronavirus disease 2019 Status: Acute Assessment and Plan: The patient is getting supportive care, remdesivir, dex, and baricitinib. (5) Type 2 diabetes mellitus with hyperglycemia: Qualifiers: Diabetes mellitus detention insulin use: without detention use Qualified Code(s): E11.65 - Type 2 diabetes mellitus with hyperglycemia Code(s): E11.65 - Type 2 diabetes mellitus with hyperglycemia Status: Acute Assessment and Plan: He is on Accu-Cheks and sliding-scale insulin. History of Present Illness Reason for Consult Consult date: 07/10/21 Chief Complaint Chief complaint: COPD, Anemia, PE, COVID Pneumonia History of Present Illness Narrative: Jose R is a very pleasant 81-year-old gentleman who has multiple medical problems including COPD, interstitial lung disease, myelodysplastic syndrome, coronary disease, diabetes, BPH, vitamin-D deficiency, GERD, depression, bilateral sciatica. The patient says that he has been sick for about 5 weeks. He has not been eating at all. He has just not been hungry. He lost quite a few lb he says but does not know exactly how many. He says occasionally has blood in his stool. No nausea or vomiting but occasional dry heaves. He says that he has an occasional cough. A few days ago he tested for COVID and was positive. In the last couple of days his breathing has gotten worse and so came to the ER. He was evaluated in the ER and admitted. He had an O2 sat of only 76% per EMT at home. He had a CT angio on admission and this showed pulmonary emboli involving all lobes of the lungs. He says that since he has gotten here he has felt a little bit better. His appetite is back. He is coughing just occasionally and he is not short of breath right now but he is still requiring oxygen. He denies bloody urine foamy urine kidney stones bladder infections or pain with urination. He does say that he has BPH and so does not always empty his bladder completely. He denies any nonsteroidal anti-inflammatory agents. His breathing is better overall. Review of Systems Constitutional: Constitutional: Reports no additional constitu
[2021-07-10] MEDS: MAGNESIUM OXIDE 400 MG TABLET PO (10:33)
[2021-07-10] MEDS: MAGNESIUM SULF 1 GM/D5W 100 ML 1 GM/100 ML BAG IVPB (10:33)
[2021-07-10] MEDS: BARICITINIB 1 MG TABLET PO (10:33)
[2021-07-10] MEDS: TAMSULOSIN HCL 0.4 MG CAPSULE PO (10:34)
[2021-07-10] MEDS: PANTOPRAZOLE 40 MG TABLET PO (10:34)
[2021-07-10] MEDS: INSULIN GLARGINE (*BKC) 100 UNITS/ML 15 UNITS SUB-Q ×2 (10:34→17:58)
--- NOTE | 2021-07-10 10:48 | PM.IMPN ---
Progress Note: A&P Assessment and Plan (1) Acute respiratory failure with hypoxia: Code(s): J96.01 - Acute respiratory failure with hypoxia Status: Acute (2) Pneumonia due to 2019 novel coronavirus: Code(s): U07.1 - COVID-19; J12.82 - Pneumonia due to coronavirus disease 2019 Status: Acute (3) Pulmonary embolism: Qualifiers: Acute cor pulmonale presence: without acute cor pulmonale Chronicity: acute Pulmonary embolism type: unspecified Qualified Code(s): I26.99 - Other pulmonary embolism without acute cor pulmonale Code(s): I26.99 - Other pulmonary embolism without acute cor pulmonale Status: Acute (4) Acute renal failure: Qualifiers: Acute renal failure type: unspecified Qualified Code(s): N17.9 - Acute kidney failure, unspecified Code(s): N17.9 - Acute kidney failure, unspecified Status: Acute (5) Type 2 diabetes mellitus with hyperglycemia: Qualifiers: Diabetes mellitus [facility] insulin use: without [facility] use Qualified Code(s): E11.65 - Type 2 diabetes mellitus with hyperglycemia Code(s): E11.65 - Type 2 diabetes mellitus with hyperglycemia Status: Acute Additional Plan # COVID 19 pneumonia on Decadron remdesivir and baricitinib. COVID test confirmatory test positive care as well. Remdesivir held due to CHI. On baricitinib. Also on Levaquin for community-acquired pneumonia possible Remdesivir on hold due to CHI however GFR 31 will recheck renal function tomorrow if continues to improve may restart that however his oxygen requirement due to his COVID 19 pneumonia has continued to improve # acute hypoxic respiratory failure on oxygen supplementation. Down to 4 L today # bilateral pulmonary embolism on Lovenox 80 mg subQ daily adjusted due to his renal function for the PEs lower extremity Doppler is negative for CC # right-sided pleuritic chest pain/musculoskeletal chest pain blood again past # CHI on CKD stage 3 baseline creatinine about 1.2 to 1.3. Continues to worsen 2.9 peaked. He did get CTA done on 07/07 could be contrast induced nephropathy. Renal ultrasound is negative for hydronephrosis. Urine studies reviewed. Consultation Renal. Appreciated the recommendation Creatinine is coming down to 2.1 today # acute on chronic anemia no signs of bleeding likely due to his underlying myelodysplastic syndrome. Initial transfusion off and on every 3-6 weeks. Follows with oncologist. Status post 2 units PRBC transfused 07/07/2021. Monitor H&H # diabetes mellitus type 2 with hyperglycemia. Metformin on hold due to renal insufficiency high-dose sliding scale will add Lantus # DVT propH: lovenox therapeutic # DNR Subjective Date/time seen: 07/10/21 10:48 Interval history: 81yo male with hx of COPD/interstitial lung disease, myelodysplastic syndrome, CAD, DM and BPH who presented to the ER via EMS from home due to shortness of breath. Assuming care. Chart reviewed. Patient denies any cough or chest pain. He does feel short of breath. Complains of right-sided mid back pain that is pleuritic and positional. No nausea, vomiting or diarrhea. He has voided x3 today 07/09/2021 oxygen requirement has gone down reports pain is right-sided chest no cough feel short of breath upon exertion being okay he states 07/10/2021 oxygen requirement is improving shortness of breath on exertion no other overnight events lidocaine patch help with right chest wall pain he reports some burning eye pain. Review of Systems Review of Systems: All systems reviewed & are unremarkable except as noted in HPI and below (HPI) Exam Narrative: Gen -conversational dyspnea noted Chest right chest wall tenderness on palpation coarse breath sound bilaterally CV - RRR S1/S2. Tele showing no significant dysrhythmias Abd - Soft, NT/ND, Positive BS Ext - No pedal edema cyanosis or clubbing Psych - Nml mood and affect Skin - cool and dry Objective Data
[2021-07-10 12:26] LABS: Glucose Point of Care 378 mg/dl (65-105)
[2021-07-10] MEDS: INSULIN ASPART (*BKC) 100 UNITS/ML 7 UNITS SUB-Q ×2 (13:19→17:57)
[2021-07-10] MEDS: INSULIN ASPART (*BKC) 100 UNITS/ML SUB-Q ×2 (13:19→17:58)
[2021-07-10 13:38] LABS: Hemoglobin A1C 7.4 % (<5.7)
[2021-07-10] MEDS: NAPHAZOLINE/PHENIRAMINE OPHTH SOLN 5 ML BOTTLE 1 DROP EACH EYE ×3 (15:09→20:28)
--- NOTE | 2021-07-10 15:58 | PCRCNOTE ---
Window of time for administration has passed. See next scheduled administration.
[2021-07-10 17:17] LABS: Glucose Point of Care 291 mg/dl (65-105)
[2021-07-10] MEDS: ENOXAPARIN 80 MG/0.8 ML SYRINGE SUB-Q (17:59)
[2021-07-10] MEDS: ASPIRIN 81 MG CHEWABLE TABLET PO (20:27)
[2021-07-10] MEDS: LIDOCAINE 5% PATCH 1 PATCH TRANSDERM (20:27)
[2021-07-10] MEDS: FINASTERIDE 5 MG TABLET PO (20:27)
[2021-07-10 20:31] LABS: Glucose Point of Care 168 mg/dl (65-105)
[2021-07-11] VITALS (30 sets, daily range): BP systolic 115–160; BP diastolic 62–80; PULSE 82–110; RESP 14–20; TEMP 35.7–36.7; O2SAT 92–100
[2021-07-11] MEDS: IPRATROPIUM BR 0.02% INH SOLN 0.5 MG/2.5 ML VIAL INHALATION ×4 (01:59→22:03)
[2021-07-11] MEDS: ALBUTEROL SULFATE NEB 2.5 MG/0.5 ML INH 5 MG INHALATION ×4 (01:59→22:02)
[2021-07-11] MEDS: ACETAMINOPHEN 325 MG TABLET 650 MG PO (03:19)
[2021-07-11 06:14] LABS: Basophils Percent Auto 0.1 % (0.2-1.2); Immature Granulocyte Absolute 0.07 K/mm3 (0.00-0.031); Immature Granulocyte Percent A 0.8 % (0-0.5); Lymphocytes Absolute Auto 0.45 K/mm3 (0.9-3.2); Mean Corpuscular HGB Conc 32.4 g/dl (32-36); Mean Corpuscular Hemoglobin 32.4 pg (26-34); Mean Platelet Volume 11.9 fl (7.4-10.4); Monocytes Absolute Auto 0.3 K/mm3 (0.1-0.6); Monocytes Percent Auto 3.6 % (2.6-8.5); Neutrophils Absolute Auto 8.1 K/mm3 (1.3-6.7); Neutrophils Percent Auto 90.5 % (45.5-73.1); Platelet Count Result 193 k/mm3 (150-375); Red Cell Distribution Width 21.6 % (11.5-14.5)
[2021-07-11 06:45] LABS: Hemoglobin 6.8 g/dL (14.0-18.0)
[2021-07-11 06:57] LABS: INR 1.4
[2021-07-11 07:32] LABS: Alanine Aminotransferase 44 U/L (4-50); Albumin Level 2.9 g/dL (3.5-5.1); Alkaline Phosphatase 113 U/L (38-126); Anion Gap 11 mmol/L (8-16); Aspartate Amino Transferase 44 U/L (17-59); Bilirubin,Total 1.3 mg/dL (0.2-1.3); Blood Urea Nitrogen 49 mg/dL (9-20); CRP 11.9 mg/dL (<1.0); Calcium 8.1 mg/dL (8.4-10.2); Carbon Dioxide 20 mmol/L (22-30); Chloride 102 mmol/L (98-107); Estimated CRCL calculation 40 ml/min; Estimated Glomerular Filt Rate 45; Glucose 208 mg/dL (65-110); Lactate Dehydrogenase 390 U/L (313-618); Potassium 4.3 mmol/L (3.4-5.0); Sodium 133 mmol/L (137-145)
[2021-07-11 08:21] LABS: Glucose Point of Care 159 mg/dl (65-105)
[2021-07-11] MEDS: INSULIN ASPART (*BKC) 100 UNITS/ML 7 UNITS SUB-Q ×3 (09:19→18:29)
[2021-07-11] MEDS: BARICITINIB 1 MG TABLET PO (09:20)
[2021-07-11] MEDS: INSULIN GLARGINE (*BKC) 100 UNITS/ML 15 UNITS SUB-Q ×2 (09:20→18:29)
[2021-07-11] MEDS: MAGNESIUM OXIDE 400 MG TABLET PO (09:21)
[2021-07-11] MEDS: TAMSULOSIN HCL 0.4 MG CAPSULE PO (09:21)
[2021-07-11] MEDS: PANTOPRAZOLE 40 MG TABLET PO (09:21)
[2021-07-11] MEDS: NAPHAZOLINE/PHENIRAMINE OPHTH SOLN 5 ML BOTTLE 1 DROP EACH EYE ×4 (10:28→21:28)
[2021-07-11 12:16] LABS: Glucose Point of Care 264 mg/dl (65-105)
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
[2021-07-11] MEDS: INSULIN ASPART (*BKC) 100 UNITS/ML SUB-Q (13:09)
--- NOTE | 2021-07-11 16:26 | PM.PNNEP ---
Progress Note: A&P Assessment and Plan (1) Acute renal failure: Qualifiers: Acute renal failure type: unspecified Qualified Code(s): N17.9 - Acute kidney failure, unspecified Code(s): N17.9 - Acute kidney failure, unspecified Status: Acute Assessment and Plan: The patient has acute kidney injury. Renal ultrasound shows no hydronephrosis Urine electrolytes do not look pre renal. His creatinine chris from 1.4 to 2.9 which was the peak, but today fell to 1.5 I suspect that his CHI is from the contrast from the CT angio. he is eating and drinking well. Continue to watch the creatinine (2) Pulmonary embolism: Qualifiers: Acute cor pulmonale presence: without acute cor pulmonale Chronicity: acute Pulmonary embolism type: unspecified Qualified Code(s): I26.99 - Other pulmonary embolism without acute cor pulmonale Code(s): I26.99 - Other pulmonary embolism without acute cor pulmonale Status: Acute Assessment and Plan: The patient is is on anticoagulants (3) Acute respiratory failure with hypoxia: Code(s): J96.01 - Acute respiratory failure with hypoxia Status: Acute Assessment and Plan: Patient is on oxygen and is saturating well right now. (4) Pneumonia due to 2019 novel coronavirus: Code(s): U07.1 - COVID-19; J12.82 - Pneumonia due to coronavirus disease 2019 Status: Acute Assessment and Plan: The patient is getting supportive care, remdesivir, dex, and baricitinib. (5) Type 2 diabetes mellitus with hyperglycemia: Qualifiers: Diabetes mellitus computer terminal operator insulin use: without computer terminal operator use Qualified Code(s): E11.65 - Type 2 diabetes mellitus with hyperglycemia Code(s): E11.65 - Type 2 diabetes mellitus with hyperglycemia Status: Acute Assessment and Plan: He is on Accu-Cheks and sliding-scale insulin. Subjective Date/time seen: 07/11/21 16:26 Interval history: julia is feeling about the same. no chest pain or shortness of breath. some pain in the back. He is discussing with hospitalists Review of Systems Cardiovascular: Cardiovascular: Reports no additional cardiovascular complaints Respiratory: Respiratory: Reports no additional respiratory complaints Gastrointestinal: Gastrointestinal: Reports no additional gastrointestinal complaints Genitourinary: Genitourinary: Reports no additional male genitourinary complaints Exam Narrative: WDWN in NAD skin no rash head ncat lungs decreased breath sounds at the bases cor reg no rub abd BS+ nontender and soft ext trace edema. Objective Data Vital Signs Vital Signs: Vital Signs - 24 hr 07/10/21 16:37 07/10/21 18:00 07/10/21 20:00 Temperature 35.8 C L 36.6 C Pulse Rate 103 H 102 H 90 Respiratory Rate 20 20 Blood Pressure 139/60 146/72 H Pulse Oximetry 95 96 07/10/21 21:04 07/10/21 21:14 07/10/21 22:00 Temperature Pulse Rate 93 93 98 Respiratory Rate 20 20 Blood Pressure Pulse Oximetry 07/10/21 23:56 07/11/21 00:00 07/11/21 02:00 Temperature 36.7 C Pulse Rate 89 88 87 Respiratory Rate 20 Blood Pressure 128/58 L Pulse Oximetry 95 95 07/11/21 02:02 07/11/21 02:12 07/11/21 03:58 Temperature 36.6 C Pulse Rate 94 94 96 Respiratory Rate 20 20 20 Blood Pressure 150/64 H Pulse Oximetry 92 07/11/21 04:00 07/11/21 06:00 07/11/21 08:00 Temperature Pulse Rate 94 98 110 H Respiratory Rate Blood Pressure Pulse Oximetry 92 96 07/11/21 08:29 07/11/21 08:40 07/11/21 08:48 Temperature 35.7 C L Pulse Rate 97 86 92 Respiratory Rate 20 20 20 Blood Pressure 160/69 H Pulse Oximetry 96 07/11/21 10:00 07/11/21 12:00 07/11/21 12:23 Temperature 36.0 C L Pulse Rate 101 H 105 H 96 Respiratory Rate 20 Blood Pressure 115/64 Pulse Oximetry 93 93 07/11/21 13:37 07/11/21 13:43 07/11/21 14:00 Temperature Pulse Rate 82 86 102 H Res
[2021-07-11] MEDS: TUBING, BLOOD PLUM PUMP TUBING 1 EACH XX (16:56)
[2021-07-11] MEDS: SODIUM CHLORIDE 0.9% IV 250 ML 30 ML IV CONT (16:56)
[2021-07-11 17:04] LABS: Glucose Point of Care 182 mg/dl (65-105)
[2021-07-11] MEDS: ENOXAPARIN 80 MG/0.8 ML SYRINGE SUB-Q (18:29)
--- NOTE | 2021-07-11 18:39 | PM.IMPN ---
Progress Note: A&P Assessment and Plan (1) Acute respiratory failure with hypoxia: Code(s): J96.01 - Acute respiratory failure with hypoxia Status: Acute (2) Pneumonia due to 2019 novel coronavirus: Code(s): U07.1 - COVID-19; J12.82 - Pneumonia due to coronavirus disease 2019 Status: Acute (3) Pulmonary embolism: Qualifiers: Acute cor pulmonale presence: without acute cor pulmonale Chronicity: acute Pulmonary embolism type: unspecified Qualified Code(s): I26.99 - Other pulmonary embolism without acute cor pulmonale Code(s): I26.99 - Other pulmonary embolism without acute cor pulmonale Status: Acute (4) Acute renal failure: Qualifiers: Acute renal failure type: unspecified Qualified Code(s): N17.9 - Acute kidney failure, unspecified Code(s): N17.9 - Acute kidney failure, unspecified Status: Acute (5) Type 2 diabetes mellitus with hyperglycemia: Qualifiers: Diabetes mellitus longterm insulin use: without longterm use Qualified Code(s): E11.65 - Type 2 diabetes mellitus with hyperglycemia Code(s): E11.65 - Type 2 diabetes mellitus with hyperglycemia Status: Acute Additional Plan # COVID 19 pneumonia on Decadron remdesivir and baricitinib. COVID test confirmatory test positive care as well. Remdesivir held due to EDWIN. On baricitinib. Also on Levaquin for community-acquired pneumonia possible Remdesivir on hold due to EDWIN however GFR 31 will recheck renal function tomorrow if continues to improve may restart that however his oxygen requirement due to his COVID 19 pneumonia has continued to improve 07/11/2021 Edwin has resolved but with improving oxygen requirement will hold off on restarting remdesivir. # acute hypoxic respiratory failure on oxygen supplementation. Down to 4 L and remained stable # bilateral pulmonary embolism on Lovenox 80 mg subQ daily adjusted due to his renal function for the PEs lower extremity Doppler is negative for DVT # right-sided pleuritic chest pain/musculoskeletal chest pain blood again past # EDWIN on CKD stage 3 baseline creatinine about 1.2 to 1.3. Continues to worsen 2.9 peaked. He did get CTA done on 07/07 could be contrast induced nephropathy. Renal ultrasound is negative for hydronephrosis. Urine studies reviewed. Consultation Renal. Appreciated the recommendation Creatinine is coming down to 2.1 and now back to baseline today # acute on chronic anemia no signs of bleeding likely due to his underlying myelodysplastic syndrome. Initial transfusion off and on every 3-6 weeks. Follows with oncologist. Status post 2 units PRBC transfused 07/07/2021. Monitor H&H next 07/11/2020 H&H down to 6.8 will transfuse 1 unit of PRBC. Will also consult Hematology/Oncology for evaluation Continue monitor H&H for any active signs of bleeding He is on Lovenox for his PE # diabetes mellitus type 2 with hyperglycemia. Metformin on hold due to renal insufficiency high-dose sliding scale will add Lantus # back pain new since last night likely musculoskeletal will get x-rays [facility] # DVT propH: lovenox therapeutic # DNR Subjective Date/time seen: 07/11/21 18:39 Interval history: 81yo male with hx of COPD/interstitial lung disease, myelodysplastic syndrome, CAD, DM and BPH who presented to the ER via EMS from home due to shortness of breath. Assuming care. Chart reviewed. Patient denies any cough or chest pain. He does feel short of breath. Complains of right-sided mid back pain that is pleuritic and positional. No nausea, vomiting or diarrhea. He has voided x3 today 07/09/2021 oxygen requirement has gone down reports pain is right-sided chest no cough feel short of breath upon exertion being okay he states 07/10/2021 oxygen requirement is improving shortness of breath on exertion no other overnight events lidocaine patch help with right chest wall pain he reports some burning eye pain.
[2021-07-11 21:11] LABS: Glucose Point of Care 185 mg/dl (65-105)
[2021-07-11] MEDS: FINASTERIDE 5 MG TABLET PO (21:27)
[2021-07-11] MEDS: ASPIRIN 81 MG CHEWABLE TABLET PO (21:27)
[2021-07-11] MEDS: LIDOCAINE 5% PATCH 1 PATCH TRANSDERM (21:28)
[2021-07-11] MEDS: CYCLOBENZAPRINE HCL 5 MG TABLET PO (23:27)
[2021-07-12] VITALS (8 sets, daily range): BP systolic 134–166; BP diastolic 65–86; PULSE 85–110; RESP 16–24; TEMP 36.5–37; O2SAT 92–96
[2021-07-12] MEDS: ALBUTEROL SULFATE NEB 2.5 MG/0.5 ML INH 5 MG INHALATION (03:58)
[2021-07-12] MEDS: IPRATROPIUM BR 0.02% INH SOLN 0.5 MG/2.5 ML VIAL INHALATION (03:59)
[2021-07-12 04:54] LABS: Basophils Percent Auto 0.1 % (0.2-1.2); Eosinophils Percent Auto 0.2 % (0-4.4); Hematocrit 26.5 % (42.0-52.0); Hemoglobin 8.6 g/dL (14.0-18.0); Immature Granulocyte Absolute 0.07 K/mm3 (0.00-0.031); Immature Granulocyte Percent A 0.8 % (0-0.5); Lymphocytes Absolute Auto 0.77 K/mm3 (0.9-3.2); Lymphocytes Percent Auto 8.5 % (18.3-44.2); Mean Corpuscular HGB Conc 32.5 g/dl (32-36); Mean Corpuscular Hemoglobin 32.3 pg (26-34); Mean Corpuscular Volume 99.6 fl (80-100); Monocytes Absolute Auto 0.3 K/mm3 (0.1-0.6); Monocytes Percent Auto 3.8 % (2.6-8.5); Neutrophils Absolute Auto 7.8 K/mm3 (1.3-6.7); Neutrophils Percent Auto 86.6 % (45.5-73.1); Platelet Count Result 192 k/mm3 (150-375); Red Blood Count 2.66 M/mm3 (4.6-6.20); Red Cell Distribution Width 21.4 % (11.5-14.5)
[2021-07-12 05:11] LABS: Alanine Aminotransferase 68 U/L (4-50); Albumin Level 2.9 g/dL (3.5-5.1); Alkaline Phosphatase 151 U/L (38-126); Anion Gap 6 mmol/L (8-16); Aspartate Amino Transferase 60 U/L (17-59); Bilirubin,Total 1.3 mg/dL (0.2-1.3); Blood Urea Nitrogen 36 mg/dL (9-20); CRP 8.3 mg/dL (<1.0); Calcium 8.2 mg/dL (8.4-10.2); Carbon Dioxide 25 mmol/L (22-30); Chloride 102 mmol/L (98-107); Estimated CRCL calculation 45 ml/min; Estimated Glomerular Filt Rate 53; Glucose 148 mg/dL (65-110); Lactate Dehydrogenase 410 U/L (313-618); Potassium 4.4 mmol/L (3.4-5.0); Sodium 133 mmol/L (137-145)
[2021-07-12 07:26] LABS: Ferritin > 2000.00 ng/mL (11.1-264)
[2021-07-12] MEDS: MAGNESIUM OXIDE 400 MG TABLET PO (09:11)
[2021-07-12] MEDS: TAMSULOSIN HCL 0.4 MG CAPSULE PO (09:11)
[2021-07-12] MEDS: PANTOPRAZOLE 40 MG TABLET PO (09:11)
[2021-07-12] MEDS: BARICITINIB 1 MG TABLET PO (09:11)
[2021-07-12] MEDS: NAPHAZOLINE/PHENIRAMINE OPHTH SOLN 5 ML BOTTLE 1 DROP EACH EYE ×2 (09:12→13:32)
--- NOTE | 2021-07-12 10:10 | PCOTNOTE ---
Patient refused treatment this session due having a 10/10 back pain and wanting to go for his xray. Stated I wanna know what the hell is going on back there because this pain is ridiculous.
[2021-07-12 10:21] LABS: Glucose Point of Care 96 mg/dl (65-105)
[2021-07-12 12:41] LABS: Glucose Point of Care 251 mg/dl (65-105)
--- NOTE | 2021-07-12 13:22 | PM.DS ---
DS: Admitting Diagnosis Discharge Date 07/12/2021 Admitting Diagnosis COVID-19 pneumonia, acute on chronic hypoxic respiratory failure DS: Discharge Diagnosis Discharge Diagnosis (1) Acute renal failure: Qualifiers: Acute renal failure type: unspecified Qualified Code(s): N17.9 - Acute kidney failure, unspecified Code(s): N17.9 - Acute kidney failure, unspecified Status: Acute Assessment and Plan: Secondary to dye from CTA scan (2) Acute respiratory failure with hypoxia: Code(s): J96.01 - Acute respiratory failure with hypoxia Status: Acute Assessment and Plan: Acute worsening on chronic respiratory failure, on 3 L home oxygen level (3) Type 2 diabetes mellitus with hyperglycemia: Qualifiers: Diabetes mellitus half-way insulin use: without predatory animal exterminator use Qualified Code(s): E11.65 - Type 2 diabetes mellitus with hyperglycemia Code(s): E11.65 - Type 2 diabetes mellitus with hyperglycemia Status: Acute Assessment and Plan: Continue home medications (4) Pneumonia due to 2019 novel coronavirus: Code(s): U07.1 - COVID-19; J12.82 - Pneumonia due to coronavirus disease 2019 Status: Acute Assessment and Plan: Status post remdesivir, Decadron, baricitinib. Patient had 5 days, had some doses of remdesivir missing with worsening renal function (5) Pulmonary embolism: Qualifiers: Acute cor pulmonale presence: without acute cor pulmonale Chronicity: acute Pulmonary embolism type: unspecified Qualified Code(s): I26.99 - Other pulmonary embolism without acute cor pulmonale Code(s): I26.99 - Other pulmonary embolism without acute cor pulmonale Status: Acute Assessment and Plan: Secondary to COVID-19, continue anticoagulation with Eliquis for 6 months, patient to follow-up with Dr. Cordon DS: Summary Hospital Course Reason for hospitalization: Acute worsening of hypoxic respiratory failure, anemia Hospital Course: Patient is a 81-year-old male past medical history of COPD/interstitial lung disease, myelodysplastic syndrome, CAD, diabetes, BPH presents to ED with complaints of dyspnea. He was diagnosed with COVID a week before admission, during his hospitalization use treated with Decadron, remdesivir, baricitinib with worsening renal function after the CTA his remdesivir was held for few doses. Patient was admitted on 07/08/2021 and he clinically improved by 07/12/2021 back to his baseline oxygen requirements. He is breathing comfortably on his 3 L of oxygen and COVID-19 appears to be resolved. For his kidney function he had a mild CHI likely secondary to the CTA contrast dye, principal statistical scientist was consulted recommending supportive care, renal ultrasound showed no hydronephrosis. Of note he was also found to have bilateral lower lobe pulmonary embolism likely secondary to COVID-19. He was given subcu Lovenox b.i.d. while inpatient. I will discharge him with Eliquis pack for pulmonary embolism. He will follow-up with his oncologist Dr. Cordon. Patient has significant myelodysplastic syndrome requiring multiple units of packed red blood cell transfusions, during this hospitalization he received 3 units of packed red blood cells. No bleed was identified and anemia is likely secondary to his chronic myelodysplastic syndrome for which he normally gets multiple units of blood transfusions. At discharge his hemoglobin was 8.6. He will follow-up with Dr. Cordon next week. He work will physical therapy and will have home health. He has back pain and x-ray of his back showed moderate thoracic spondylolysis and is probably not appropriate for him to have surgery, patient follow-up with PCP. He will follow-up with PCP and Dr. Cordon next week. Patient understands and agrees with plan.At time of discharge patient's vitals are stable, labs stable, patient is stable for discharge home. Status at Discharge Cognitive/behavioral status at d
[2021-07-12] MEDS: INSULIN ASPART (*BKC) 100 UNITS/ML SUB-Q (13:31)
--- NOTE | 2021-07-12 14:19 | PCPTNOTE ---
Patient refused treatment this session due to going home this afternoon.
== END 2021-07-12 15:10 | disposition home health service (06) | DRG 177 ==
LOC: ANHED 18:44 → ANHIMU 07-11 08:34
PROVIDERS: Emergency Medicine; Internal Medicine; Admitting Provider Internal Medicine; Emergency Provider Family Medicine; PCP Internal Medicine; Visit Provider Student in an Organized Health Care Education/Training Program
DX: U07.1 COVID-19 (principal); J12.82 Pneumonia due to coronavirus disease 2019; J96.21 Acute and chronic respiratory failure with hypoxia; I26.99 Other pulmonary embolism without acute cor pulmonale; N17.0 Acute kidney failure with tubular necrosis; J44.0 Chronic obstructive pulmonary disease with (acute) lower respiratory infection; N17.8 Other acute kidney failure; T50.8X5A Adverse effect of diagnostic agents, initial encounter; E11.65 Type 2 diabetes mellitus with hyperglycemia; E11.22 Type 2 diabetes mellitus with diabetic chronic kidney disease; I12.9 Hypertensive chronic kidney disease with stage 1 through stage 4 chronic kidney disease, or unspecified chronic kidney disease; N18.30 Chronic kidney disease, stage 3 unspecified; I25.10 Atherosclerotic heart disease of native coronary artery without angina pectoris; N40.0 Benign prostatic hyperplasia without lower urinary tract symptoms; K21.9 Gastro-esophageal reflux disease without esophagitis; D46.9 Myelodysplastic syndrome, unspecified; D63.8 Anemia in other chronic diseases classified elsewhere; E55.9 Vitamin D deficiency, unspecified; Z96.652 Presence of left artificial knee joint; Z66 Do not resuscitate; Z87.891 Personal history of nicotine dependence; Z95.5 Presence of coronary angioplasty implant and graft; Z90.49 Acquired absence of other specified parts of digestive tract
CPT/HCPCS: 36415; 36430; 36600; 71045; 71275; 72072; 76775; 80048; 80053; 80069; 82565; 82570; 82728; 82805; 82948; 83036; 83605; 83615; 83735; 84300; 84450; 84460; 84540; 85025; 85380; 85610; 85999; 86140; 86850; 86900; 86901; 86920; 87040; 87426; 93005; 93970; 94640; 97110; 97162; 97165; 97530; 97535; 99291; A9270; C9803; J0696; J1100; J1650; J1815; J1956; J3475; J7030; J7050; P9016; Q9967; U0003; U0005

== ENCOUNTER 2021-08-22 11:17 | Outpatient (RCR) | payer MEDICARE, MEDICAID, SELFPAY ==
[2021-08-18 12:27] LABS: Hematocrit 24.1 % (42.0-52.0); Hemoglobin 7.8 g/dL (14.0-18.0); Mean Corpuscular HGB Conc 32.4 g/dl (32-36); Mean Corpuscular Hemoglobin 31.2 pg (26-34); Mean Corpuscular Volume 96.4 fl (80-100); Platelet Count Result 268 k/mm3 (150-375); Red Cell Distribution Width 18.2 % (11.5-14.5); White Blood Count 6.6 K/mm3 (4.5-10.0)
[2021-08-18 12:39] LABS: Anion Gap 8 mmol/L (8-16); Blood Urea Nitrogen 20 mg/dL (9-20); Calcium 8.9 mg/dL (8.4-10.2); Carbon Dioxide 24 mmol/L (22-30); Chloride 106 mmol/L (98-107); Estimated Glomerular Filt Rate > 60; Glucose 220 mg/dL (65-110); Sodium 138 mmol/L (137-145)
[2021-08-22 12:02] LABS: Hematocrit 22.8 % (42.0-52.0); Hemoglobin 7.4 g/dL (14.0-18.0); Mean Corpuscular HGB Conc 32.5 g/dl (32-36); Mean Corpuscular Hemoglobin 31.6 pg (26-34); Mean Corpuscular Volume 97.4 fl (80-100); Mean Platelet Volume 10.6 fl (7.4-10.4); Platelet Count Result 263 k/mm3 (150-375); Red Blood Count 2.34 M/mm3 (4.6-6.20); Red Cell Distribution Width 18.6 % (11.5-14.5); White Blood Count 6.4 K/mm3 (4.5-10.0)
[2021-08-22 12:12] LABS: Anion Gap 9 mmol/L (8-16); Blood Urea Nitrogen 17 mg/dL (9-20); Carbon Dioxide 25 mmol/L (22-30); Chloride 107 mmol/L (98-107); Estimated Glomerular Filt Rate > 60; Glucose 192 mg/dL (65-110); Potassium 3.7 mmol/L (3.4-5.0); Sodium 141 mmol/L (137-145)
== END 2021-11-16 23:59 | disposition home or self-care (01) ==
LOC: HOME HLTH 11:17
PROVIDERS: PCP Internal Medicine; Visit Provider Internal Medicine
DX: J96.01 Acute respiratory failure with hypoxia (principal); I26.99 Other pulmonary embolism without acute cor pulmonale
CPT/HCPCS: 80048; 85027

== ENCOUNTER 2021-08-30 07:23 | Outpatient (RCR) | payer MEDICARE, MEDICAID, SELFPAY ==
[2021-08-30] VITALS (9 sets, daily range): BP systolic 116–157; BP diastolic 56–90; PULSE 86–97; RESP 20–22; TEMP 36.3–36.9; O2SAT 93–98
[2021-08-30] MEDS: ACETAMINOPHEN 325 MG TABLET 650 MG PO (08:13)
[2021-08-30] MEDS: diphenhydrAMINE HCl CAP 25 MG CAPSULE PO (08:15)
[2021-08-30] MEDS: SODIUM CHLORIDE 0.9% IV 250 ML 30 ML IV CONT (08:18)
[2021-08-30] MEDS: FUROSEMIDE INJ 40 MG/4 ML VIAL 20 MG IV PUSH (10:45)
== END 2021-11-28 23:59 | disposition home or self-care (01) ==
LOC: ANHCPCTRAN 07:23
PROVIDERS: PCP Internal Medicine; Visit Provider Internal Medicine Hematology & Oncology
DX: D64.9 Anemia, unspecified (principal)
CPT/HCPCS: 36415; 36430; 86920; 96374; A9270; J1940; J7040; J7050; P9016

== ENCOUNTER 2021-10-27 11:39 | Outpatient (RCR) | payer MEDICARE, MEDICAID, SELFPAY ==
[2021-10-10 12:01] LABS: Basophils Absolute Auto 0.2 K/mm3 (0.0-0.1); Basophils Percent Auto 3.5 % (0.2-1.2); Eosinophils Absolute Auto 0.4 K/mm3 (0-0.3); Eosinophils Percent Auto 6.8 % (0-4.4); Hematocrit 25.2 % (42.0-52.0); Hemoglobin 8.2 g/dL (14.0-18.0); Immature Granulocyte Absolute 0.02 K/mm3 (0.00-0.031); Immature Granulocyte Percent A 0.4 % (0-0.5); Lymphocytes Absolute Auto 1.19 K/mm3 (0.9-3.2); Lymphocytes Percent Auto 21.8 % (18.3-44.2); Mean Corpuscular HGB Conc 32.5 g/dl (32-36); Mean Corpuscular Hemoglobin 32.7 pg (26-34); Mean Corpuscular Volume 100.4 fl (80-100); Mean Platelet Volume 12.1 fl (7.4-10.4); Monocytes Absolute Auto 0.3 K/mm3 (0.1-0.6); Neutrophils Absolute Auto 3.4 K/mm3 (1.3-6.7); Neutrophils Percent Auto 62.5 % (45.5-73.1); Nucleated Red Blood Cells Perc 0.6 % (0.0-0.2); Platelet Count Result 238 k/mm3 (150-375); Red Blood Count 2.51 M/mm3 (4.6-6.20); Red Cell Distribution Width 22.3 % (11.5-14.5); White Blood Count 5.5 K/mm3 (4.5-10.0)
[2021-10-10 12:18] LABS: Alanine Aminotransferase 19 U/L (4-50); Albumin Level 4.3 g/dL (3.5-5.1); Alkaline Phosphatase 75 U/L (38-126); Anion Gap 8 mmol/L (8-16); Aspartate Amino Transferase 36 U/L (17-59); Bilirubin,Total 2.4 mg/dL (0.2-1.3); Blood Urea Nitrogen 17 mg/dL (9-20); Calcium 9.2 mg/dL (8.4-10.2); Carbon Dioxide 27 mmol/L (22-30); Chloride 104 mmol/L (98-107); Estimated Glomerular Filt Rate > 60; Glucose 194 mg/dL (65-110); Sodium 139 mmol/L (137-145)
[2021-10-10 13:16] LABS: Vancomycin Trough 16.7 ug/mL (10.0-20.0)
[2021-10-13 10:46] LABS: Basophils Absolute Auto 0.2 K/mm3 (0.0-0.1); Basophils Percent Auto 3.3 % (0.2-1.2); Eosinophils Absolute Auto 0.4 K/mm3 (0-0.3); Eosinophils Percent Auto 5.2 % (0-4.4); Hematocrit 24.5 % (42.0-52.0); Immature Granulocyte Absolute 0.02 K/mm3 (0.00-0.031); Immature Granulocyte Percent A 0.3 % (0-0.5); Lymphocytes Absolute Auto 1.13 K/mm3 (0.9-3.2); Lymphocytes Percent Auto 16.9 % (18.3-44.2); Mean Corpuscular HGB Conc 32.7 g/dl (32-36); Mean Corpuscular Hemoglobin 32.5 pg (26-34); Mean Corpuscular Volume 99.6 fl (80-100); Mean Platelet Volume 11.6 fl (7.4-10.4); Monocytes Absolute Auto 0.2 K/mm3 (0.1-0.6); Monocytes Percent Auto 3.6 % (2.6-8.5); Neutrophils Absolute Auto 4.7 K/mm3 (1.3-6.7); Neutrophils Percent Auto 70.7 % (45.5-73.1); Nucleated Red Blood Cells Perc 0.3 % (0.0-0.2); Platelet Count Result 282 k/mm3 (150-375); Red Blood Count 2.46 M/mm3 (4.6-6.20); Red Cell Distribution Width 22.1 % (11.5-14.5); White Blood Count 6.7 K/mm3 (4.5-10.0)
[2021-10-13 10:57] LABS: Alanine Aminotransferase 20 U/L (4-50); Albumin Level 4.4 g/dL (3.5-5.1); Alkaline Phosphatase 89 U/L (38-126); Anion Gap 8 mmol/L (8-16); Aspartate Amino Transferase 30 U/L (17-59); Bilirubin,Total 1.6 mg/dL (0.2-1.3); Blood Urea Nitrogen 27 mg/dL (9-20); Calcium 8.9 mg/dL (8.4-10.2); Carbon Dioxide 27 mmol/L (22-30); Chloride 103 mmol/L (98-107); Estimated Glomerular Filt Rate 58; Glucose 240 mg/dL (65-110); Potassium 4.6 mmol/L (3.4-5.0); Sodium 138 mmol/L (137-145)
[2021-10-13 11:06] LABS: Vancomycin Trough 15.6 ug/mL (10.0-20.0)
[2021-10-17 10:33] LABS: Basophils Absolute Auto 0.2 K/mm3 (0.0-0.1); Eosinophils Absolute Auto 0.6 K/mm3 (0-0.3); Eosinophils Percent Auto 5.6 % (0-4.4); Immature Granulocyte Absolute 0.04 K/mm3 (0.00-0.031); Immature Granulocyte Percent A 0.4 % (0-0.5); Lymphocytes Absolute Auto 1.17 K/mm3 (0.9-3.2); Lymphocytes Percent Auto 11.5 % (18.3-44.2); Mean Corpuscular HGB Conc 31.6 g/dl (32-36); Mean Corpuscular Hemoglobin 32.7 pg (26-34); Mean Corpuscular Volume 103.5 fl (80-100); Mean Platelet Volume 11.8 fl (7.4-10.4); Monocytes Absolute Auto 0.4 K/mm3 (0.1-0.6); Monocytes Percent Auto 3.7 % (2.6-8.5); Neutrophils Absolute Auto 7.8 K/mm3 (1.3-6.7); Neutrophils Percent Auto 76.8 % (45.5-73.1); Nucleated Red Blood Cells Perc 0.3 % (0.0-0.2); Platelet Count Result 221 k/mm3 (150-375); Red Blood Count 2.02 M/mm3 (4.6-6.20); Red Cell Distribution Width 22.6 % (11.5-14.5); White Blood Count 10.2 K/mm3 (4.5-10.0)
[2021-10-17 10:40] LABS: Hematocrit 20.9 % (42.0-52.0)
[2021-10-17 10:57] LABS: Alanine Aminotransferase 16 U/L (4-50); Albumin Level 3.8 g/dL (3.5-5.1); Alkaline Phosphatase 63 U/L (38-126); Anion Gap 9 mmol/L (8-16); Aspartate Amino Transferase 24 U/L (17-59); Bilirubin,Total 1.6 mg/dL (0.2-1.3); Blood Urea Nitrogen 28 mg/dL (9-20); Calcium 8.3 mg/dL (8.4-10.2); Carbon Dioxide 22 mmol/L (22-30); Chloride 106 mmol/L (98-107); Estimated Glomerular Filt Rate 58; Glucose 211 mg/dL (65-110); Potassium 4.3 mmol/L (3.4-5.0); Sodium 137 mmol/L (137-145)
[2021-10-17 11:34] LABS: Vancomycin Trough 10.1 ug/mL (10.0-20.0)
[2021-10-17 11:50] LABS: Hemoglobin 6.6 g/dL (14.0-18.0)
[2021-10-20 12:09] LABS: Basophils Absolute Auto 0.3 K/mm3 (0.0-0.1); Basophils Percent Auto 3.4 % (0.2-1.2); Eosinophils Absolute Auto 0.6 K/mm3 (0-0.3); Eosinophils Percent Auto 7.7 % (0-4.4); Hematocrit 24.5 % (42.0-52.0); Hemoglobin 7.9 g/dL (14.0-18.0); Immature Granulocyte Absolute 0.04 K/mm3 (0.00-0.031); Immature Granulocyte Percent A 0.5 % (0-0.5); Lymphocytes Percent Auto 13.6 % (18.3-44.2); Mean Corpuscular HGB Conc 32.2 g/dl (32-36); Mean Corpuscular Hemoglobin 32.5 pg (26-34); Mean Corpuscular Volume 100.8 fl (80-100); Mean Platelet Volume 12.1 fl (7.4-10.4); Monocytes Absolute Auto 0.3 K/mm3 (0.1-0.6); Monocytes Percent Auto 3.8 % (2.6-8.5); Neutrophils Absolute Auto 5.2 K/mm3 (1.3-6.7); Nucleated Red Blood Cells Perc 0.3 % (0.0-0.2); Platelet Count Result 247 k/mm3 (150-375); Red Blood Count 2.43 M/mm3 (4.6-6.20); Red Cell Distribution Width 21.1 % (11.5-14.5); White Blood Count 7.4 K/mm3 (4.5-10.0)
[2021-10-20 12:14] LABS: Alanine Aminotransferase 19 U/L (4-50); Albumin Level 3.9 g/dL (3.5-5.1); Alkaline Phosphatase 76 U/L (38-126); Anion Gap 8 mmol/L (8-16); Aspartate Amino Transferase 30 U/L (17-59); Bilirubin,Total 1.4 mg/dL (0.2-1.3); Blood Urea Nitrogen 24 mg/dL (9-20); Calcium 8.2 mg/dL (8.4-10.2); Carbon Dioxide 25 mmol/L (22-30); Chloride 104 mmol/L (98-107); Estimated Glomerular Filt Rate 58; Glucose 177 mg/dL (65-110); Potassium 3.9 mmol/L (3.4-5.0); Sodium 137 mmol/L (137-145)
[2021-10-20 12:33] LABS: Vancomycin Trough 10.3 ug/mL (10.0-20.0)
[2021-10-24 10:27] LABS: Basophils Absolute Auto 0.2 K/mm3 (0.0-0.1); Basophils Percent Auto 2.1 % (0.2-1.2); Eosinophils Absolute Auto 0.7 K/mm3 (0-0.3); Eosinophils Percent Auto 6.6 % (0-4.4); Hematocrit 23.7 % (42.0-52.0); Hemoglobin 7.6 g/dL (14.0-18.0); Immature Granulocyte Absolute 0.05 K/mm3 (0.00-0.031); Immature Granulocyte Percent A 0.5 % (0-0.5); Lymphocytes Absolute Auto 1.16 K/mm3 (0.9-3.2); Lymphocytes Percent Auto 10.6 % (18.3-44.2); Mean Corpuscular HGB Conc 32.1 g/dl (32-36); Mean Corpuscular Hemoglobin 32.2 pg (26-34); Mean Corpuscular Volume 100.4 fl (80-100); Mean Platelet Volume 11.9 fl (7.4-10.4); Monocytes Absolute Auto 0.5 K/mm3 (0.1-0.6); Monocytes Percent Auto 4.5 % (2.6-8.5); Neutrophils Absolute Auto 8.3 K/mm3 (1.3-6.7); Neutrophils Percent Auto 75.7 % (45.5-73.1); Nucleated Red Blood Cells Absolute Auto 0.1 K/mm3 (0.0-0.012); Nucleated Red Blood Cells Perc 0.5 % (0.0-0.2); Platelet Count Result 272 k/mm3 (150-375); Red Blood Count 2.36 M/mm3 (4.6-6.20); Red Cell Distribution Width 21.3 % (11.5-14.5)
[2021-10-24 10:38] LABS: Alanine Aminotransferase 18 U/L (4-50); Albumin Level 3.9 g/dL (3.5-5.1); Alkaline Phosphatase 79 U/L (38-126); Anion Gap 9 mmol/L (8-16); Aspartate Amino Transferase 31 U/L (17-59); Bilirubin,Total 1.5 mg/dL (0.2-1.3); Blood Urea Nitrogen 29 mg/dL (9-20); Calcium 7.9 mg/dL (8.4-10.2); Carbon Dioxide 28 mmol/L (22-30); Chloride 104 mmol/L (98-107); Estimated Glomerular Filt Rate 53; Glucose 160 mg/dL (65-110); Potassium 3.8 mmol/L (3.4-5.0); Sodium 141 mmol/L (137-145)
[2021-10-24 10:43] LABS: Vancomycin Trough 11.4 ug/mL (10.0-20.0)
[2021-10-27 11:55] LABS: Basophils Absolute Auto 0.2 K/mm3 (0.0-0.1); Basophils Percent Auto 3.3 % (0.2-1.2); Eosinophils Absolute Auto 0.5 K/mm3 (0-0.3); Eosinophils Percent Auto 8.2 % (0-4.4); Hematocrit 23.2 % (42.0-52.0); Hemoglobin 7.4 g/dL (14.0-18.0); Immature Granulocyte Absolute 0.02 K/mm3 (0.00-0.031); Immature Granulocyte Percent A 0.3 % (0-0.5); Lymphocytes Absolute Auto 1.05 K/mm3 (0.9-3.2); Lymphocytes Percent Auto 16.5 % (18.3-44.2); Mean Corpuscular HGB Conc 31.9 g/dl (32-36); Mean Corpuscular Hemoglobin 31.9 pg (26-34); Mean Platelet Volume 11.7 fl (7.4-10.4); Monocytes Absolute Auto 0.3 K/mm3 (0.1-0.6); Monocytes Percent Auto 4.7 % (2.6-8.5); Neutrophils Absolute Auto 4.3 K/mm3 (1.3-6.7); Nucleated Red Blood Cells Absolute Auto 0.1 K/mm3 (0.0-0.012); Nucleated Red Blood Cells Perc 0.8 % (0.0-0.2); Platelet Count Result 253 k/mm3 (150-375); Red Blood Count 2.32 M/mm3 (4.6-6.20); Red Cell Distribution Width 21.8 % (11.5-14.5); White Blood Count 6.4 K/mm3 (4.5-10.0)
[2021-10-27 12:03] LABS: Alanine Aminotransferase 19 U/L (4-50); Albumin Level 4.1 g/dL (3.5-5.1); Alkaline Phosphatase 82 U/L (38-126); Anion Gap 10 mmol/L (8-16); Aspartate Amino Transferase 35 U/L (17-59); Bilirubin,Total 1.6 mg/dL (0.2-1.3); Blood Urea Nitrogen 24 mg/dL (9-20); Calcium 7.7 mg/dL (8.4-10.2); Carbon Dioxide 27 mmol/L (22-30); Chloride 104 mmol/L (98-107); Estimated Glomerular Filt Rate 58; Glucose 175 mg/dL (65-110); Potassium 3.6 mmol/L (3.4-5.0); Sodium 141 mmol/L (137-145)
== END 2022-01-08 23:59 | disposition home or self-care (01) ==
LOC: HOME HLTH 11:39
PROVIDERS: PCP Internal Medicine; Visit Provider Internal Medicine Infectious Disease
DX: U07.1 COVID-19 (principal); J12.82 Pneumonia due to coronavirus disease 2019; I26.99 Other pulmonary embolism without acute cor pulmonale
CPT/HCPCS: 80053; 80202; 85025

== ENCOUNTER 2021-11-07 07:45 | Outpatient (RCR) | payer MEDICARE, MEDICAID, SELFPAY ==
[2021-11-07] VITALS (10 sets, daily range): BP systolic 157–186; BP diastolic 59–90; PULSE 76–89; RESP 14–18; TEMP 36.3–36.6; O2SAT 94–99
[2021-11-07] MEDS: ACETAMINOPHEN 325 MG TABLET 650 MG PO (08:10)
[2021-11-07] MEDS: diphenhydrAMINE HCl CAP 25 MG CAPSULE PO (08:11)
[2021-11-07 09:19] LABS: Hematocrit 20.2 % (42.0-52.0); Hemoglobin 6.3 g/dL (14.0-18.0)
[2021-11-07] MEDS: FUROSEMIDE INJ 40 MG/4 ML VIAL 20 MG IV PUSH (12:15)
== END 2022-02-02 23:59 | disposition home or self-care (01) ==
LOC: ANHCPCTRAN 07:45
PROVIDERS: PCP Internal Medicine; Visit Provider Internal Medicine Hematology & Oncology
DX: D64.9 Anemia, unspecified (principal)
CPT/HCPCS: 36415; 36430; 85014; 85018; 86920; A9270; J1940; J7050; P9016